=== PATIENT | female | born 1945 | race Caucasian/White ===

== ENCOUNTER 2020-08-31 14:53 | Outpatient (REF) | payer MEDICARE, SELFPAY ==
--- NOTE | 2020-08-31 15:00 | MR_ITS ---
EXAMINATION: MR BRAIN WITHOUT AND WITH CONTRAST CLINICAL INFORMATION: Asymmetric hearing loss. Vertigo. Left acoustic neuroma. COMPARISON: None available. TECHNIQUE: Multiplanar, multisequence imaging of the brain was performed before and after the intravenous administration of 5.5 mL of Gadavist. FINDINGS: The inner ear structures including the cochlea, vestibules, and semicircular canals exhibit preserved CSF signal intensity with no pathologic enhancement. The vestibular aqueducts are not enlarged. Cranial nerves VII and VIII complexes are normal in morphology. No enhancing cerebellopontine angle/retrocochlear lesion. There is no intracranial mass or abnormal intracranial enhancement. There is no acute infarction. There is no intracranial hemorrhage or extra axial collection. There is mild degree of diffuse brain parenchymal volume loss with commensurate prominence of the ventricles and sulci. Minimal periventricular and deep white matter T2 hyperintensity is seen, nonspecific. The flow voids of the major intracranial arteries appear intact. There is mild paranasal sinus mucosal thickening without fluid levels. The mastoids are clear. IMPRESSION: - No vestibular schwannoma or retrocochlear lesion. - No mass lesion, acute infarction, or abnormal intracranial enhancement.
== END 2020-08-31 14:54 | disposition home or self-care (01) ==
LOC: HO.MRI 14:53
PROVIDERS: Visit Provider Otolaryngology
DX: H91.93 Unspecified hearing loss, bilateral (principal); R42 Dizziness and giddiness
CPT/HCPCS: 70553

== ENCOUNTER 2020-09-08 12:20 | Outpatient (REF) | payer MEDICARE, SELFPAY ==
[2020-09-08 13:07] LABS: MANUAL DIFF FLAG NO
[2020-09-08 13:13] LABS: Basophils Absolute Auto 0.1 X10*3/uL (0.0-0.2); Basophils Percent Auto 1.4 % (0-2); Eosinophils Absolute Auto 0.3 X10*3/uL (0.0-0.4); Eosinophils Percent Auto 4.3 % (0-4); Hematocrit 34.4 % (37-47); Hemoglobin 11.2 g/dl (12.0-16.0); Imm Gran Abs Auto 0.02 X10*3/uL (0.00-0.03); Imm Gran Pct Auto 0.3 % (0.0-0.4); Lymphocytes Absolute Auto 1.8 X10*3/uL (1.2-4.9); Lymphocytes Percent Auto 26.7 % (20-40); Mean Corpuscular HGB Conc 32.6 g/dl (31.0-35.0); Mean Corpuscular Hemoglobin 29.9 pg (27.0-33.0); Mean Platelet Volume 11.7 fL (9.4-12.3); Monocytes Absolute Auto 0.8 X10*3/uL (0.1-1.2); Monocytes Percent Auto 11.5 % (2-11); Neutrophils Absolute Auto 3.7 X10*3/uL (2.0-8.3); Neutrophils Percent Auto 55.8 % (45-73); Platelet Count 259 X10*3/uL (160-400); Red Blood Count 3.74 X10*6/uL (4.20-5.50); Red Cell Distribution Width 12.7 % (11.0-16.0); White Blood Count 6.6 X10*3/uL (4.8-10.8)
[2020-09-08 13:50] LABS: Alanine Aminotransferase 20 U/L (0-31); Albumin Level 4.1 g/dL (3.5-5.0); Alkaline Phosphatase 64 U/L (39-117); Anion Gap 11 (12-20); Aspartate Amino Transferase 20 U/L (5-31); Bilirubin Total 0.2 mg/dL (0.0-1.0); Blood Urea Nitrogen 16 mg/dL (9-16); Calcium 9.4 mg/dL (8.4-10.2); Carbon Dioxide 28 mmol/L (22-29); Chloride 98 mmol/L (96-108); Cholesterol 181 mg/dL; Estimated Glomerular Filt Rate 57; Glucose Random 107 mg/dL (60-115); Potassium 4.5 mmol/l (3.3-5.1); Sodium 132 mmol/L (135-145); Total Protein 6.9 g/dL (6.5-8.0)
[2020-09-08 14:13] LABS: Vitamin D 25-OH Total 60.4 ng/mL (>30)
== END 2020-09-08 12:21 | disposition home or self-care (01) ==
LOC: HO.LAB 12:20
PROVIDERS: PCP Internal Medicine; Visit Provider Internal Medicine
DX: I10 Essential (primary) hypertension (principal); K21.9 Gastro-esophageal reflux disease without esophagitis; M81.0 Age-related osteoporosis without current pathological fracture
CPT/HCPCS: 36415; 80053; 82306; 82465; 85025

== ENCOUNTER 2021-05-24 10:00 | Outpatient (REF) | payer MEDICARE, SELFPAY ==
[2021-05-24 10:29] LABS: MANUAL DIFF FLAG NO
[2021-05-24 10:38] LABS: Basophils Absolute Auto 0.1 X10*3/uL (0.0-0.2); Basophils Percent Auto 1.5 % (0-2); Eosinophils Absolute Auto 0.2 X10*3/uL (0.0-0.4); Eosinophils Percent Auto 2.7 % (0-4); Hematocrit 36.2 % (37-47); Hemoglobin 11.6 g/dl (12.0-16.0); Imm Gran Abs Auto 0.02 X10*3/uL (0.00-0.03); Imm Gran Pct Auto 0.3 % (0.0-0.4); Lymphocytes Percent Auto 32.6 % (20-40); Mean Corpuscular Hemoglobin 30.1 pg (27.0-33.0); Monocytes Absolute Auto 0.8 X10*3/uL (0.1-1.2); Monocytes Percent Auto 12.5 % (2-11); Neutrophils Percent Auto 50.4 % (45-73); Platelet Count 223 X10*3/uL (160-400); Red Blood Count 3.85 X10*6/uL (4.20-5.50); Red Cell Distribution Width 12.9 % (11.0-16.0)
[2021-05-24 11:07] LABS: Alanine Aminotransferase 16 U/L (0-31); Albumin Level 4.1 g/dL (3.5-5.0); Alkaline Phosphatase 66 U/L (39-117); Anion Gap 11 (12-20); Aspartate Amino Transferase 19 U/L (5-31); Bilirubin Total 0.6 mg/dL (0.0-1.0); Blood Urea Nitrogen 20 mg/dL (9-16); Calcium 9.8 mg/dL (8.4-10.2); Carbon Dioxide 27 mmol/L (22-29); Chloride 104 mmol/L (96-108); Cholesterol 200 mg/dL; Estimated Glomerular Filt Rate 56; Glucose Fasting 103 mg/dL (60-99); HDL Cholesterol 65 mg/dL; LDL Cholesterol Calculated 122 mg/dl; Potassium 5.1 mmol/L (3.3-5.1); Sodium 137 mmol/L (135-145); Total Protein 7.1 g/dL (6.5-8.0); Triglycerides 69 mg/dL
[2021-05-24 11:17] LABS: Estimated Average Glucose 120 mg/dL; Hemoglobin A1c % 5.8 %
[2021-05-24 11:19] LABS: Thyroid Stimulating Hormone 0.81 uIU/mL (0.32-4.0)
[2021-05-24 11:46] LABS: Creatinine Urine 32.37 mg/dL; Microalbumin Urine < 5.0 mg/L
== END 2021-05-24 10:01 | disposition home or self-care (01) ==
LOC: HO.LAB 10:00
PROVIDERS: PCP Internal Medicine; Visit Provider Internal Medicine
DX: R60.0 Localized edema (principal); R73.03 Prediabetes; I12.9 Hypertensive chronic kidney disease with stage 1 through stage 4 chronic kidney disease, or unspecified chronic kidney disease; N18.9 Chronic kidney disease, unspecified; M81.0 Age-related osteoporosis without current pathological fracture
CPT/HCPCS: 36415; 80053; 80061; 82043; 83036; 84439; 84443; 85025

== ENCOUNTER 2021-07-16 15:08 | Outpatient (REF) | payer MEDICARE, SELFPAY ==
--- NOTE | ~2021-07-16 | MM_ITS ---
EXAMINATION: MM SCREENING DIGITAL BREAST TOMOSYNTHESIS, BILATERAL CLINICAL INFORMATION: Screening. Asymptomatic. The lifetime risk of breast cancer based on the Tyrer-Cuzick Model is 2%. COMPARISON: Mammography: 05/23/2020, 03/08/2019, 02/18/2019, 02/17/2018 TECHNIQUE: Digital breast tomosynthesis is performed in both the craniocaudal and mediolateral oblique views along with computer-aided detection (CAD). Synthesized 2D images are generated from the tomosynthesis. FINDINGS: There are scattered areas of fibroglandular density (ACR BI-RADS breast composition Category b). Parenchymal pattern is similar to prior studies. There are stable parenchymal asymmetries and fibronodular changes similar to prior exams. No developing density or interval significant mass or architectural abnormality. There are scattered bilateral round and coarse and vascular calcifications. The axilla and skin contours are unremarkable. No significant changes. MM/MM tomosynthesis screening BI IMPRESSION: No mammographic evidence of malignancy. ASSESSMENT: BI-RADS 2: Benign RECOMMENDATION: Routine annual mammography screening. This patient's information was entered into a reminder system with a target due date for their next mammogram.
== END 2021-07-16 15:09 | disposition home or self-care (01) ==
LOC: HO.MAMMO 15:08
PROVIDERS: Visit Provider Internal Medicine
DX: Z12.31 Encounter for screening mammogram for malignant neoplasm of breast (principal)
CPT/HCPCS: 77063; 77067

== ENCOUNTER 2021-08-31 10:21 | Outpatient (REF) | payer MEDICARE, SELFPAY ==
[2021-08-31 14:13] LABS: Anion Gap 13 (12-20); Blood Urea Nitrogen 22 mg/dL (9-16); Calcium 9.5 mg/dL (8.4-10.2); Carbon Dioxide 26 mmol/L (22-29); Chloride 99 mmol/L (96-108); Estimated Glomerular Filt Rate 52; Glucose Random 121 mg/dL (60-115); Potassium 4.6 mmol/L (3.3-5.1); Sodium 133 mmol/L (135-145)
[2021-08-31 14:39] LABS: Vitamin D 25-OH Total 67.3 ng/mL (>30)
[2021-08-31 14:48] LABS: Estimated Average Glucose 120 mg/dL; Hemoglobin A1c % 5.8 %
== END 2021-08-31 10:22 | disposition home or self-care (01) ==
LOC: HO.10HDL 10:21
PROVIDERS: Visit Provider Internal Medicine
DX: I12.9 Hypertensive chronic kidney disease with stage 1 through stage 4 chronic kidney disease, or unspecified chronic kidney disease (principal); N18.9 Chronic kidney disease, unspecified; M81.0 Age-related osteoporosis without current pathological fracture; R73.03 Prediabetes
CPT/HCPCS: 36415; 80048; 82306; 83036

== ENCOUNTER 2022-05-21 07:09 | Outpatient (REF) | payer MEDICARE, SELFPAY ==
[2022-05-21 07:21] LABS: MANUAL DIFF FLAG NO
[2022-05-21 07:48] LABS: Basophils Absolute Auto 0.1 X10*3/uL (0.0-0.2); Basophils Percent Auto 1.9 % (0-2); Eosinophils Absolute Auto 0.4 X10*3/uL (0.0-0.4); Hematocrit 33.9 % (37.0-47.0); Hemoglobin 10.9 g/dl (12.0-16.0); Imm Gran Abs Auto 0.02 X10*3/uL (0.00-0.03); Imm Gran Pct Auto 0.3 % (0.0-0.4); Lymphocytes Absolute Auto 2.2 X10*3/uL (1.2-4.9); Lymphocytes Percent Auto 34.7 % (20-40); Mean Corpuscular HGB Conc 32.2 g/dl (31.0-35.0); Mean Corpuscular Hemoglobin 30.1 pg (27.0-33.0); Mean Corpuscular Volume 93.6 fL (80.0-98.0); Mean Platelet Volume 11.9 fL (9.4-12.3); Monocytes Absolute Auto 0.9 X10*3/uL (0.1-1.2); Monocytes Percent Auto 13.6 % (2-11); Neutrophils Absolute Auto 2.7 x10*3/uL (2.0-8.3); Neutrophils Percent Auto 42.5 % (45-73); Platelet Count 247 X10*3/uL (160-400); Red Blood Count 3.62 X10*6/uL (4.20-5.50); White Blood Count 6.3 X10*3/uL (4.8-10.8)
[2022-05-21 08:21] LABS: Alanine Aminotransferase 22 U/L (0-31); Alkaline Phosphatase 70 U/L (39-117); Anion Gap 11 (12-20); Aspartate Amino Transferase 17 U/L (5-31); Bilirubin Total 0.5 mg/dL (0.0-1.0); Blood Urea Nitrogen 24 mg/dL (9-16); Calcium 9.4 mg/dL (8.4-10.2); Carbon Dioxide 27 mmol/L (22-29); Chloride 105 mmol/L (96-108); Cholesterol 211 mg/dL; Estimated Glomerular Filt Rate 49; Glucose Fasting 104 mg/dL (60-99); HDL Cholesterol 65 mg/dL; LDL Cholesterol Calculated 138 mg/dl; Potassium 4.7 mmol/L (3.3-5.1); Sodium 138 mmol/L (135-145); Total Protein 7.1 g/dL (6.5-8.0); Triglycerides 43 mg/dL
== END 2022-05-21 07:10 | disposition home or self-care (01) ==
LOC: HO.LAB 07:09
PROVIDERS: PCP Internal Medicine; Visit Provider Internal Medicine
DX: I12.9 Hypertensive chronic kidney disease with stage 1 through stage 4 chronic kidney disease, or unspecified chronic kidney disease (principal); N18.9 Chronic kidney disease, unspecified; K21.9 Gastro-esophageal reflux disease without esophagitis
CPT/HCPCS: 36415; 80053; 80061; 85025

== ENCOUNTER 2022-07-19 10:17 | Outpatient (REF) | payer MEDICARE, SELFPAY ==
--- NOTE | ~2022-07-19 | MM_ITS ---
EXAMINATION: BONE DENSITOMETRY CLINICAL INDICATION: Menopause. COMPARISON: Previous BD dated 06/08/2019 and baseline BD dated 12/19/2006. TECHNIQUE: Using a [employer] DXA System (software version: 13.1) manufactured by [employer], dual-energy x-ray absorptiometry was performed of the lumbar spine and left hip. The images are of good technical quality. Summary results are attached. FINDINGS: AP SPINE L1-L4: There is dextrocurvature lumbar spine and associated degenerative changes which may cause overestimation of the lumbar bone mineral density. Current: BMD 0.806 g/cm2, Z-score -1.0, T-score -3.1, osteoporosis, 11.6% decrease from previous, 7.5% decrease from baseline (<5% change is not significant). Prior: BMD 0.912 g/cm2. Baseline: BMD 0.871 g/cm2. LEFT FEMUR, NECK: Current: BMD 0.752 g/cm2, Z-score 0.2, T-score -2.1, osteopenia. Prior: BMD 0.719 g/cm2. Baseline: BMD 0.786 g/cm2. LEFT FEMUR, TOTAL: Current: BMD 0.795 g/cm2, Z-score 0.5, T-score -1.7, osteopenia, 1.6% decrease from previous, 6.9% decrease from baseline (<5% change is not significant). Prior: BMD 0.808 g/cm2. Baseline: BMD 0.854 g/cm2. IDENTIFIED RISK FACTORS: Menopause, height loss, osteoporosis. HISTORY OF FRACTURE: None listed. MEDICATIONS: Calcium, vitamin D. MM/XR DEXA axial skeleton IMPRESSION: 1. DIAGNOSIS: Osteoporosis based on the lowest T-score value of -3.1 in the lumbar spine applying World Health Organization criteria. 2. 10-YEAR FRACTURE RISK PREDICTION, FRAX: According to the guidelines, FRAX calculation should only be performed on patients in the osteopenia bone density category. Therefore, FRAX was not performed on this patient. 3. Treatment Recommendations: NOF guidelines recommend consideration for treatment in postmenopausal women and men age 50 and older presenting with the following: -A hip or vertebral (clinical or morphometric) fracture. -T-score less than or equal to -2.5 at the femoral neck or spine after appropriate evaluation to exclude secondary causes. -Low bone mass at the hip or spine and a 10-year fracture probability by FRAX of greater than or equal to 3% for hip fracture or greater than or equal to 20% for major osteoporotic fracture based on the [place] adapted WHO algorithm. 4. Other Recommendations: All treatment decisions require clinical judgment and consideration of individual patient factors, including patient preferences, comorbidities, previous drug use, risk factors not captured in the FRAX model (e.g. frailty, falls, vitamin D deficiency, increased bone turnover, interval significant decline in bone density) and possible under or overestimation of fracture risk by FRAX. Additional medical evaluation for secondary cause of low bone mineral density may be appropriate. FUTURE SCAN RECOMMENDATION: People with diagnosed cases of osteoporosis or at high risk for fracture should have regular bone mineral density tests. For patients eligible for Medicare, routine testing is allowed once every 2 years. The testing frequency can be increased to one year for patients who have rapidly progressing disease, those who are receiving or discontinuing medical therapy to restore bone mass, or have additional risk factors. .
--- NOTE | ~2022-07-19 | MM_ITS ---
EXAMINATION: MM SCREENING DIGITAL BREAST TOMOSYNTHESIS, BILATERAL CLINICAL INFORMATION: Screening. Asymptomatic. The lifetime risk of breast cancer based on the Tyrer-Cuzick Model is 1.7%. COMPARISON: Mammography: July 16, 2021 and studies dating back to December 31, 2011 TECHNIQUE: Digital breast tomosynthesis is performed in both the craniocaudal and mediolateral oblique views along with computer-aided detection (CAD). Synthesized 2D images are generated from the tomosynthesis. FINDINGS: There are scattered areas of fibroglandular density (ACR BI-RADS breast composition Category b). There are no significant masses, abnormal calcifications, or other abnormalities. MM/MM tomosynthesis screening BI IMPRESSION: No mammographic evidence of malignancy. ASSESSMENT: BI-RADS 1: Negative RECOMMENDATION: Routine annual mammography screening. This patient's information was entered into a reminder system with a target due date for their next mammogram.
== END 2022-07-19 10:18 | disposition home or self-care (01) ==
LOC: HO.MAMMO 10:17
PROVIDERS: PCP Internal Medicine; Visit Provider Internal Medicine
DX: Z12.31 Encounter for screening mammogram for malignant neoplasm of breast (principal); Z13.820 Encounter for screening for osteoporosis; Z78.0 Asymptomatic menopausal state
CPT/HCPCS: 77063; 77067; 77080

== ENCOUNTER 2022-11-07 07:39 | Outpatient (REF) | payer MEDICARE, SELFPAY ==
[2022-11-07 07:50] LABS: MANUAL DIFF FLAG NO
[2022-11-07 08:15] LABS: Basophils Absolute Auto 0.1 X10*3/uL (0.0-0.2); Basophils Percent Auto 1.2 % (0-2); Eosinophils Absolute Auto 0.7 X10*3/uL (0.0-0.4); Eosinophils Percent Auto 8.7 % (0-4); Hematocrit 34.6 % (37.0-47.0); Hemoglobin 11.1 g/dl (12.0-16.0); Imm Gran Abs Auto 0.03 X10*3/uL (0.00-0.03); Imm Gran Pct Auto 0.4 % (0.0-0.4); Lymphocytes Absolute Auto 1.8 X10*3/uL (1.2-4.9); Lymphocytes Percent Auto 22.6 % (20-40); Mean Corpuscular HGB Conc 32.1 g/dl (31.0-35.0); Mean Corpuscular Hemoglobin 30.1 pg (27.0-33.0); Mean Corpuscular Volume 93.8 fL (80.0-98.0); Mean Platelet Volume 11.7 fL (9.4-12.3); Monocytes Percent Auto 13.2 % (2-11); Neutrophils Absolute Auto 4.2 x10*3/uL (2.0-8.3); Neutrophils Percent Auto 53.9 % (45-73); Platelet Count 279 X10*3/uL (160-400); Red Blood Count 3.69 X10*6/uL (4.20-5.50); Red Cell Distribution Width 12.5 % (11.0-16.0); White Blood Count 7.8 X10*3/uL (4.8-10.8)
[2022-11-07 08:43] LABS: Alanine Aminotransferase 20 U/L (0-31); Alkaline Phosphatase 67 U/L (39-117); Anion Gap 12 (12-20); Aspartate Amino Transferase 16 U/L (5-31); Bilirubin Total 0.4 mg/dL (0.0-1.0); Blood Urea Nitrogen 22 mg/dL (9-16); Calcium 9.7 mg/dL (8.4-10.2); Carbon Dioxide 28 mmol/L (22-29); Chloride 102 mmol/L (96-108); Cholesterol 181 mg/dL; Estimated Glomerular Filt Rate 54; Glucose Fasting 100 mg/dL (60-99); HDL Cholesterol 54 mg/dL; LDL Cholesterol Calculated 112 mg/dl; Potassium 4.9 mmol/L (3.3-5.1); Sodium 137 mmol/L (135-145); Total Protein 6.9 g/dL (6.5-8.0); Triglycerides 77 mg/dL
== END 2022-11-07 07:40 | disposition home or self-care (01) ==
LOC: HO.LAB 07:39
PROVIDERS: PCP Internal Medicine; Visit Provider Internal Medicine
DX: I10 Essential (primary) hypertension (principal); E78.00 Pure hypercholesterolemia, unspecified; D64.9 Anemia, unspecified
CPT/HCPCS: 36415; 80053; 80061; 85025

== ENCOUNTER 2023-07-02 10:55 | Outpatient (REF) | payer MEDICARE, SELFPAY ==
[2023-07-02 11:08] LABS: MANUAL DIFF FLAG NO
[2023-07-02 11:50] LABS: Basophils Absolute Auto 0.1 X10*3/uL (0.0-0.2); Basophils Percent Auto 1.2 % (0-2); Eosinophils Absolute Auto 0.3 X10*3/uL (0.0-0.4); Eosinophils Percent Auto 5.1 % (0-4); Hematocrit 33.6 % (37.0-47.0); Hemoglobin 11.1 g/dl (12.0-16.0); Imm Gran Abs Auto 0.02 X10*3/uL (0.00-0.03); Imm Gran Pct Auto 0.3 % (0.0-0.4); Lymphocytes Absolute Auto 1.9 X10*3/uL (1.2-4.9); Mean Corpuscular Hemoglobin 30.2 pg (27.0-33.0); Mean Corpuscular Volume 91.3 fL (80.0-98.0); Mean Platelet Volume 12.1 fL (9.4-12.3); Monocytes Absolute Auto 0.8 X10*3/uL (0.1-1.2); Monocytes Percent Auto 11.3 % (2-11); Neutrophils Absolute Auto 3.6 x10*3/uL (2.0-8.3); Neutrophils Percent Auto 54.1 % (45-73); Platelet Count 238 X10*3/uL (160-400); Red Blood Count 3.68 X10*6/uL (4.20-5.50); Red Cell Distribution Width 13.1 % (11.0-16.0); White Blood Count 6.7 X10*3/uL (4.8-10.8)
[2023-07-02 12:23] LABS: Anion Gap 14 (12-20); Blood Urea Nitrogen 19 mg/dL (9-16); Calcium 9.2 mg/dL (8.4-10.2); Carbon Dioxide 23 mmol/L (22-29); Chloride 103 mmol/L (96-108); Estimated Glomerular Filt Rate 55; Glucose Random 134 mg/dL (60-115); Iron 140 mcg/dL (30-160); Percent Iron Saturation 41 % (15-50); Sodium 135 mmol/L (135-145); Total Iron Binding Capacity 338 mcg/dL (228-428); Unsaturated Iron Binding 198 ug/dL
== END 2023-07-02 10:56 | disposition home or self-care (01) ==
LOC: HO.LAB 10:55
PROVIDERS: PCP Internal Medicine; Visit Provider Internal Medicine
DX: K21.9 Gastro-esophageal reflux disease without esophagitis (principal); D64.9 Anemia, unspecified; I12.9 Hypertensive chronic kidney disease with stage 1 through stage 4 chronic kidney disease, or unspecified chronic kidney disease; N18.9 Chronic kidney disease, unspecified
CPT/HCPCS: 36415; 80048; 83540; 85025

== ENCOUNTER 2023-07-24 10:25 | Outpatient (REF) | payer MEDICARE, SELFPAY | END 2023-07-24 10:26 | disposition home or self-care (01) | LOC: HO.MAMMO 10:25 | PROVIDERS: PCP Internal Medicine; Visit Provider Internal Medicine | DX: Z12.31 Encounter for screening mammogram for malignant neoplasm of breast (principal) | CPT/HCPCS: 77063; 77067 ==

== ENCOUNTER → 2023-07-24 11:00 | Outpatient (BNV) | payer MEDICARE, SELFPAY | PROVIDERS: PCP Internal Medicine; Visit Provider Radiology Diagnostic Radiology | DX: Z12.31 Encounter for screening mammogram for malignant neoplasm of breast (principal) | CPT/HCPCS: 77063; 77067 ==

== ENCOUNTER 2023-10-15 08:12 | Outpatient (REF) | payer MEDICARE, SELFPAY ==
[2023-10-15 08:45] LABS: MANUAL DIFF FLAG NO
[2023-10-15 10:17] LABS: Basophils Absolute Auto 0.1 X10*3/uL (0.0-0.2); Basophils Percent Auto 1.3 % (0-2); Eosinophils Absolute Auto 0.4 X10*3/uL (0.0-0.4); Eosinophils Percent Auto 5.6 % (0-4); Hematocrit 35.1 % (37.0-47.0); Hemoglobin 11.2 g/dl (12.0-16.0); Imm Gran Abs Auto 0.01 X10*3/uL (0.00-0.03); Imm Gran Pct Auto 0.2 % (0.0-0.4); Lymphocytes Absolute Auto 1.7 X10*3/uL (1.2-4.9); Lymphocytes Percent Auto 27.2 % (20-40); Mean Corpuscular HGB Conc 31.9 g/dl (31.0-35.0); Mean Corpuscular Hemoglobin 29.9 pg (27.0-33.0); Mean Corpuscular Volume 93.6 fL (80.0-98.0); Monocytes Absolute Auto 0.7 X10*3/uL (0.1-1.2); Monocytes Percent Auto 11.6 % (2-11); Neutrophils Absolute Auto 3.5 x10*3/uL (2.0-8.3); Neutrophils Percent Auto 54.1 % (45-73); Platelet Count 230 X10*3/uL (160-400); Red Blood Count 3.75 X10*6/uL (4.20-5.50); Red Cell Distribution Width 13.2 % (11.0-16.0); White Blood Count 6.4 X10*3/uL (4.8-10.8)
[2023-10-15 10:32] LABS: Estimated Average Glucose 123 mg/dL; Hemoglobin A1c % 5.9 % (<6.0)
[2023-10-15 10:56] LABS: Alanine Aminotransferase 18 U/L (0-31); Albumin Level 3.9 g/dL (3.5-5.0); Alkaline Phosphatase 71 U/L (39-117); Anion Gap 11 (12-20); Aspartate Amino Transferase 21 U/L (5-31); Bilirubin Total 0.4 mg/dL (0.0-1.0); Blood Urea Nitrogen 23 mg/dL (9-16); Calcium 9.4 mg/dL (8.4-10.2); Carbon Dioxide 26 mmol/L (22-29); Chloride 104 mmol/L (96-108); Cholesterol 177 mg/dL (<200); Estimated Glomerular Filt Rate 55; Glucose Fasting 94 mg/dL (60-99); HDL Cholesterol 57 mg/dL (>40); LDL Cholesterol Calculated 109 mg/dL (<100); Potassium 4.8 mmol/L (3.3-5.1); Sodium 136 mmol/L (135-145); Total Protein 7.2 g/dL (6.5-8.0); Triglycerides 58 mg/dL (<150)
[2023-10-15 11:16] LABS: Vitamin D 25-OH Total 72.6 ng/mL (>30)
== END 2023-10-15 08:13 | disposition home or self-care (01) ==
LOC: HO.LAB 08:12
PROVIDERS: PCP Internal Medicine; Visit Provider Internal Medicine
DX: I12.9 Hypertensive chronic kidney disease with stage 1 through stage 4 chronic kidney disease, or unspecified chronic kidney disease (principal); N18.9 Chronic kidney disease, unspecified; R73.03 Prediabetes; E55.9 Vitamin D deficiency, unspecified
CPT/HCPCS: 36415; 80053; 80061; 82306; 83036; 85025

== ENCOUNTER 2024-02-02 11:50 | Outpatient (AMB) | payer MEDICARE, SELFPAY ==
--- NOTE | 2024-02-02 12:01 | MHC.OFFVIS ---
Intake Vital Signs 02/02/24 12:13 Height 4 ft 11 in Weight 120 lb BMI 24.2 BP 128/76 Intake Visit Reasons: [employer] annual exam/Referral/DO NOT RS Intake Note: c/o of vaginal cyst ,now resolve Hospice Superintendent Required: Yes Hospice Superintendent Language: [place] Hospice Superintendent Name: Roxann Hernandez Information Interpreted: non-clinical & clinical Culled Fruit Packer: Culled Fruit Packer Present (Rocio VERDUGOA) Accompanied by: Daughter Allergies No Known Allergies Allergy (Mild, Unverified 02/02/24 12:06) NOT APPLICABLE Post menopausal: Yes HPI HPI Comments History of Present Illness Details Presenting for annual exam. No complaints. Last Pap/HPV was many years ago no history of abnormal Pap smears last 25 years Last Mammogram was BI-RADS 1 in 07/23 Next screening Colonoscopy due in 08/24 Last DEXA scan was in 07/22 [facility] Medical History GERD (gastroesophageal reflux disease) HTN (hypertension) Family History Sister HTN (hypertension) Social History Household Members: None Housing: House Alcohol intake: never Patient Tobacco Use Status: Never used Tobacco Current occupational status: retired Sexually active: No Sexual orientation: Straight/Heterosexual Gender identity: Female Female Reproductive History Menstrual Menopause type: natural Total pregnancies: 2 Full term: 2 Number of Living Children: 2 Review of Systems Const All systems reviewed & are unremarkable except as noted in HPI and below Card Reports as per HPI Resp Reports as per HPI GI Reports as per HPI and Reports no additional complaints Reports as per HPI Physical Exam Vital Signs: Last Vital Signs BP 128/76 02/02/24 12:13 BMI result Body Mass Index 24.2 Const General: cooperative, healthy appearing and comfortable Chest Chest palpation & inspection: normal inspection of the chest and normal palpation of entire chest wall Breast/axilla inspection: normal inspection of the breasts and normal inspection of the axillae Breast/axilla palpation: normal palpation of the breasts, normal palpation of the axillae and no axillary lymphadenopathy Resp Effort & Inspection: normal respiratory effort Auscultation: clear to auscultation bilaterally Percussion: percussion normal Cardio Palpation: normal PMI Rate: regular rate Rhythm: regular rhythm Heart sounds: no murmurs and no rubs Peripheral pulses: Peripheral pulses 2+ throughout GI Inspection: Yes normal to inspection Palpation (GI): Soft to palpation, nontender, no guarding, not rigid and No hepatosplenomegaly present Percussion: Yes normal to percussion Auscultation: normal bowel sounds Rectal Exam - Female: deferred General: Yes bladder normal to palpation External Female Exam: No lesion Speculum Exam - Vagina: normal appearance of the vagina, normal palpation, normal vaginal discharge and not erythematous Speculum Exam - Cervix: normal appearance of the cervix and normal palpation Bimanual exam- vagina & uterus: normal bimanual exam, normal palpation, uterine size normal, bladder normal to palpation, consistency normal and normal palpation Bimanual Exam- Adnexa, other: normal adnexae, no masses and no tenderness Assessment & Plan Assessment & Plan (1) Well woman exam: Code(s): Z01.419 - Encounter for gynecological examination (general) (routine) without abnormal findings Plan: Co testing not indicated since the patient 's age is above 65 with no history of abnormal Pap smears last 25 years. Counseled the patient about the recommended dietary allowance of 1200 mg of Calcium & 800 IU of vitamin D. Instructions given to patient to schedule next screening Mammogram in 07/24. The patient is in the process schedule her next screening colonoscopy in 08/24. Will order DEXA scan in 07/24 . The patient was instructed to perform monthly self-breast exams and to schedule a 2 week DEXA scan follow-up appointment and an annual exam in a year; All questions answered and the patient verbalized understanding. Orders: Orders XR DEXA axial skeleton 08/11/24 Z78.0 - Asymptomatic menopausal state Coding Level of Care Code New Pt Prev Care >65yr (45833) Diagnoses Well woman exam Z01.419
[2024-02-02 12:13] VITALS: BP 128/76; BMI 24.2
== END 2024-02-02 12:42 | disposition home or self-care (01) ==
LOC: HO.HWS 11:52
PROVIDERS: PCP Internal Medicine; Visit Provider Obstetrics & Gynecology
DX: Z01.419 Encounter for gynecological examination (general) (routine) without abnormal findings (principal)
CPT/HCPCS: 99387

== ENCOUNTER → 2024-02-02 11:50 | Outpatient (BNVA) | payer MEDICARE, SELFPAY | PROVIDERS: PCP Internal Medicine; Visit Provider Obstetrics & Gynecology ==

== ENCOUNTER 2024-07-01 12:19 | Outpatient (REF) | payer MEDICARE, SELFPAY ==
--- NOTE | ~2024-07-01 | US_ITS ---
EXAMINATION: US RETROPERITONEAL COMPLETE (RENAL) CLINICAL INFORMATION: Chronic kidney disease, CRI, HTN. COMPARISON: None available. TECHNIQUE: Real-time imaging of the kidneys and bladder. Limited visualization due to bowel gas. FINDINGS: RIGHT KIDNEY: 9.3 x 4.0 x 4.5 cm (SAG x AP x TRV). No hydronephrosis. No renal calculi. Renal cortical thickness is normal. Limited visualization. A 1.1 cm lower pole cyst with benign features. There is no indication for follow-up imaging. LEFT KIDNEY: 8.9 x 4.2 x 4.1 cm (SAG x AP x TRV No hydronephrosis. No renal calculi. Renal cortical thickness is normal. Limited visualization. BLADDER: Well-distended and unremarkable. Bilateral ureteral jets are demonstrated. Prevoid bladder volume is 227.3 mL. Postvoid bladder volume is 42.8 mL. US/US retroperitoneal comp IMPRESSION: 1. No hydronephrosis. No renal calculi. 2. Postvoid bladder volume is 42.8 mL.
== END 2024-07-01 12:20 | disposition home or self-care (01) ==
LOC: HO.US 12:19
PROVIDERS: PCP Internal Medicine; Visit Provider Internal Medicine
DX: I12.9 Hypertensive chronic kidney disease with stage 1 through stage 4 chronic kidney disease, or unspecified chronic kidney disease (principal); N18.9 Chronic kidney disease, unspecified
CPT/HCPCS: 76770

== ENCOUNTER 2024-07-01 18:23 | Emergency (ER) | payer MEDICARE, SELFPAY ==
--- NOTE | ~2024-07-01 | CT_ITS ---
EXAMINATION: CT head/brain wo IV con CLINICAL INFORMATION: dizziness x2 wks COMPARISON: None. TECHNIQUE: Contiguous axial imaging was performed from the skull base to vertex without intravenous contrast. Sagittal and coronal reformatted images were obtained. This CT examination was performed using dose optimization techniques as appropriate, variously including the following: * Automated exposure control * Adjustment of mA and/or kV according to patient size (this includes techniques or standardized protocols for targeted exams where dose is matched to indication/reason for exam; i.e. extremities or head) Use of iterative reconstruction technique DLP: 571.74 mGy-cm FINDINGS: The ventricles and sulci are normal in size and configuration without significant volume loss or hydrocephalus No territorial loss of boucher-white differentiation. No acute intracranial hemorrhage or extra-axial fluid collection. No mass lesion, significant mass effect, or herniation pattern. Calcific plaque along the carotid siphons. The orbits are grossly normal. Patchy moderate polypoid mucosal disease of the paranasal sinuses. Osseous structures are intact. CT/CT head/brain wo IV con IMPRESSION: No acute intracranial abnormality. Specifically, no CT evidence of acute intracranial hemorrhage, significant mass effect, hydrocephalus, or large territorial infarction.
--- NOTE | ~2024-07-01 | XR_ITS ---
EXAMINATION: XR CHEST CLINICAL INFORMATION: Dizziness. COMPARISON: None available. TECHNIQUE: 2 views of the chest were obtained. FINDINGS: The heart is normal in size. There is a small opacity within the lateral left lower lung. The right lung is clear. No pleural effusion. No pneumothorax. No acute osseous abnormality. There are degenerative changes of the glenohumeral joints and degenerative changes of the spine. XR/XR chest 2V IMPRESSION: Lateral left lower lobe opacity. Although this may represent atelectasis, an infectious/inflammatory process is not excluded.
[2024-07-01 18:26] VITALS: BP 198/92; PULSE 98; RESP 18; TEMP 36.6; O2SAT 98; BMI 27.4
--- NOTE | 2024-07-01 18:26 | ED.DIZZY ---
HPI - Dizziness General Chief Complaint: General Medical Stated Complaint: Dizziness, high bp: 207/91 20 mins ago Time Seen by Provider: 07/01/24 19:14 Source: patient and family Mode of arrival: ambulatory Limitations: no limitations History of Present Illness ED Provider: Dr. Valerie Villarreal HPI Narrative: Patient comes to the emergency room complaining of 2 weeks of dizziness, explained by the daughter as unsteadiness on her feet, hanging on to the verdin for walking. Worsened weakness, headaches. According to the patient's daughter, today, the patient had an appointment for outpatient renal ultrasounds. When the patient's daughter dropped her mother home, the patient seemed very slow to respond although she was awake, confused. They brought her to the emergency room. According to the daughter that the patient has not had any falls. Related Data Home Medications ?Medication ?Instructions ?Recorded ?Confirmed alprazolam 0.25 mg tablet 0.25 mg PO DAILY 02/02/24 bupropion HCl 100 mg tablet,12 hr 100 mg PO QAM 02/02/24 sustained-release lansoprazole 30 mg capsule,delayed 30 mg PO DAILY 02/02/24 release lisinopril 10 mg tablet 10 mg PO DAILY 02/02/24 clobetasol 0.05 % topical ointment 1 appl topical NEEDED PRN Rash 07/01/24 fexofenadine 60 mg tablet 60 mg PO BID 07/01/24 glucosamine sulfate 750 mg tablet 1,500 mg PO DAILY 07/01/24 [id number] 200 1 tab PO DAILY 07/01/24 mg-biotin 450 mcg-vit D3 400 unit-FA tablet multivitamin 1 tab PO DAILY 07/01/24 Allergies Allergy/AdvReac Type Severity Reaction Status Date / Time No Known Allergies Allergy Mild NOT Verified 07/01/24 18:27 APPLICABLE Review of Systems Review of Systems: Constitutional : No Weight loss, No Fever, No Chills, No Night Sweats, lying of fatigue, weakness ENT/Mouth : No Hearing loss, No Ear Pain, No Nasal Congestion, No Sinus Pain, No Hoarseness, No sore throat, No Rhinorrhea, No Swallowing Difficulty Eyes: No Eye Pain, No Swelling, No Redness, No Foreign Body, No Discharge, No Vision Changes Cardiovascular : No Chest Pain, No SOB, No Dyspnea on Exertion, No Orthopnea, No Edema, No Palpitations Respiratory : No Cough, No Sputum, No Wheezing, No Smoke Exposure, No Dyspnea Gastrointestinal : No Nausea, No Vomiting, No Diarrhea, No Constipation, No abdominal Pain, No Hematochezia, No Melena Genitourinary : no irregular bleeding, No Dysuria, No Urinary Frequency, No Hematuria, No Urinary Incontinence, No Urgency, No Flank Pain, No Urinary Flow Changes, No Hesitancy Musculoskeletal : No joint pain, No Myalgias, No Joint Swelling Skin : No Skin Lesions, No rash Neuro : No Weakness, No Numbness, No Paresthesias, No Loss of Consciousness, complaining of dizziness, headaches Psych : No Anxiety/Panic, No Depression, No SI/HI/AH/VH, No Social Issues, Heme/Lymph: No Bruising, No Bleeding,No Lymphadenopathy Endocrine : No Polyuria, No Polydipsia, No Temperature Intolerance [facility] Past Medical History Medical History GERD (gastroesophageal reflux disease) HTN (hypertension) Family History Family History Sister HTN (hypertension) Social History Social History Household Members: None Housing: House Alcohol intake: never Patient Tobacco Use Status: Never used Tobacco Smoked in Last 30 Days: No Use of substances other than those prescribed or required for medical reasons: No Advance Directives: No Advance Directives Information Provided: No Do you have a plan to hurt others: No Plan Current occupational status: retired Sexual orientation: Straight/Heterosexual Gender identity: Female Physical Exam Vital Signs: Vital Signs: Last Vital Signs Temp 97.7 F 07/01/24 22:00 Pulse 83 07/01/24 22:00 Resp 17 07/01/24 22:00 BP 150/79 H 07/01/24 22:00 Pulse Ox 97 07/01/24 22:00 O2 Del Method Room Air 07/01/24 22:00 BMI result Body Mass Index 27.4 Const: Other: Appearance: Alert. No acute distress, seems a bit confused Eyes: Pupils equal, round and reactive to light. ENT: Pharynx normal. Neck: Normal inspection. Neck supple. No lymph nodes noted. No crepitus CVS: Normal heart rate and rhythm. Pulses normal. Normal S1 and S2 Respiratory: No respiratory distress. Breath sounds normal. No Wheezing. No rales Abdomen: Soft and nontender. No rigidity. No distention. Skin: Skin warm and dry. Normal skin color. Normal skin turgor. Extremities: No lower extremity edema. No Lacerations. No Rash Neuro: No motor deficit. No sensory deficit. Moving all extremities. No slurred speech. CN 2 through 12 grossly intact Psych: calm, cooperative, normal affect Course Course Course Narrative: This is a Rapid Medical Examination (RME) performed by Rody Vaughan PA-C in triage. Full HPI, ROS, assessment and treatment plan per primary provider in the Main ED. 79 yo female here w/ daughter for eval of intermittent dizziness x2 weeks. Can not characterize the dizziness. daughter reports patient began to complain of PATEL 2-3 hours ago. BP at home noted to be 210/98. took an extra 10mg lisinopril. bp did not improve. denies chest pain, palpitations, sob, vision changes, difficulty ambulating no slurred speech. no pronator drift. no facial droop. AOx3. ambulating w/ steady gait rn discharge aware of patient, will be brought back to ED bed immediately for further evaluation. Plan: labs, EKG, CT, UA, cxr Medications Administered Generic Name Dose Route Start Last Admin Trade Name Freq PRN Reason Stop Dose Admin Sodium Chloride 1,000 mls @ 100 mls/hr 07/01/24 21:00 07/01/24 21:12 Ns IVCONT 100 mls/hr .Q10H EFRAIN Administration Discontinued Medications Generic Name Dose Route Start Last Admin Trade Name Freq PRN Reason Stop Dose Admin Ceftriaxone Sodium 1 gm/ 50 mls @ 100 mls/hr 07/01/24 20:39 07/01/24 21:19 Sodium Chloride IV 07/01/24 21:08 Infused ONCE ONE Infusion Azithromycin 500 mg/ Sodium 250 mls @ 125 mls/hr 07/01/24 20:39 07/01/24 23:40 Chloride IV 07/01/24 22:38 Infused ONCE ONE Infusion Ondansetron HCl 4 mg 07/01/24 20:36 07/01/24 20:55 Ondansetron Hcl 4 Mg/2 Ml Vial IVPUSH 07/01/24 20:37 4 mg ONCE ONE Administration Medical Decision Making Medical Decision Making [facility] Narrative: My interpretation of labs: Hematology at baseline, patient anemic with a hemoglobin of 10.5 which is chronic. Patient's sodium is 111, serum osmolality 234, urine osmolality 267, urine sodium 88 -interpretation of head CT: No intracranial bleed. -I discussed the above-mentioned with Dr. Monroy from Nephrology. At this time, recommendations is to run normal saline at 100 mL/hour. We will recheck labs every 3-4 hours. -I discussed with Dr. Monroy that patient is with a sodium of less than 120 usually go to the ICU. Dr. Monroy states that other than running saline at 100 mL/hour, there will be no significant changes in treatment. No need for the patient to go to an ICU. We can manage the patient here at [facility] on the floor. I discussed the above-mentioned with Dr. ravi, who consulted Dr. Montenegro. We will keep the patient here in the ED -other recommendation per Nephrology, discontinue using lisinopril -chest x-ray radiology report: Atelectasis versus pneumonia, patient empirically being treated with antibiotics. According to the patient's daughter, the patient has not had any URI symptoms -patient vomited x1 here in the ED, given Zofran. Fluids will remain at 100 mL/hour -per patient's daughter, to her knowledge, the patient does not drink excessive amounts of water, only 3-4 medium bottles throughout the day -overall, after a prolonged discussion, patient can not be admitted to the floor with a sodium of 111. We were able to get in touch with [facility] ICU, discussed the patient with the fellow on-call, patient being admitted. We will repeat sodium prior to transport. If sodium is increasing more than 1-2 mL/hour, we will discontinue sodium. -accepting physician Dr. Tinoco Differential Diagnosis Differential Diagnoses: The differential diagnosis associated with the presentation includes (Hyponatremia, UTI, TIA) Admission/Observation Consideration of admission/observation: Escalation of care including admission/observation considered Consult Healthcare Provider Management of the patient was discussed with: Hospitalist and Pyrometer Temperature Regulator Lab Data [facility] Lab Attestation statement: I reviewed the patient's lab results. 07/01/24 18:40 07/01/24 21:45 Labs: Lab Results 07/01/24 07/01/24 07/01/24 Range/Units 18:40 19:40 19:41 WBC 7.3 (4.8-10.8) X10*3/uL RBC 3.43 L (4.20-5.50) X10*6/uL Hgb 10.5 L (12.0-16.0) g/dl Hct 29.1 L (37.0-47.0) % MCV 84.8 (80.0-98.0) fL MCH 30.6 (27.0-33.0) pg MCHC 36.1 H (31.0-35.0) g/dl RDW 12.2 (11.0-16.0) % Plt Count 231 (160-400) X10*3/uL MPV 10.4 (9.4-12.3) fL Immature Gran % (Auto) Cancelled Neut % (Auto) Cancelled Lymph % (Auto) Cancelled [place] % (Auto) Cancelled Eos % (Auto) Cancelled Baso % (Auto) Cancelled Lymph # (Auto) Cancelled [place] # (Auto) Cancelled Eos # (Auto) Cancelled Baso # (Auto) Cancelled Abs Immat Gran (auto) Cancelled Absolute Neuts (auto) Cancelled Absolute Nucleated RBC 0.000 (0.0-0.012) X10*3/uL Nucleated RBC % (auto) 0.0 (0.0-0.2) /100WBC Neutrophils % (Manual) 71 (45-73) % Band Neutrophils % 0 L (3-5) % Lymphocytes % (Manual) 22 (20-40) % Monocytes % (Manual) 6 (2-11) % Basophils % (Manual) 1 (0-2) % Abs Neuts (Manual) 5.2 (2.0-8.3) X10*3/uL Lymphocytes # (Manual) 1.6 (1.2-4.9) X10*3/uL Monocytes # (Manual) 0.4 (0.1-1.2) X10*3/uL Basophils # (Manual) 0.1 (0.0-0.2) X10*3/uL Platelet Estimate NORMAL (NORMAL) Plt Morphology Comment NORMAL RBC Morphology NOTED [place] Cells 1+ (0-2) /OIF Sodium 111 L* (135-145) mmol/L Potassium 4.2 (3.3-5.1) mmol/L Chloride 81 L D (96-108) mmol/L Carbon Dioxide 21 L (22-29) mmol/L Anion Gap 13 (12-20) BUN 11 (9-16) mg/dL Creatinine 0.79 (0.5-1.4) mg/dL Estim Creat Clear Calc 36.8 Estimated GFR > 60 Random Glucose 126 H (60-115) mg/dL Osmolality 234 L (281-305) mosm/kg Calcium 8.4 D (8.4-10.2) mg/dL Magnesium 1.8 (1.6-2.6) mg/dL Total Bilirubin 0.4 (0.0-1.0) mg/dL AST 23 (5-31) U/L ALT 17 (0-31) U/L Alkaline Phosphatase 68 (39-117) U/L Troponin I High Sens 4.8 (<3.5-17.0) ng/L B-Natriuretic Peptide 48 (<100) pg/mL Total Protein 6.9 (6.5-8.0) g/dL Albumin 3.9 (3.5-5.0) g/dL Lipase 33 (8-78) U/L Urine Color Yellow Urine Appearance Clear Urine pH 8.0 (5.0-9.0) Ur Specific [place] <= 1.005 (1.005-1.025) Urine Protein Trace (Neg-Trace) mg/dL Urine Glucose (UA) Negative (Negative) mg/dL Urine Ketones Negative (Negative) mg/dL Urine Blood Negative (Negative) Urine Nitrite Negative (Negative) Ur Leukocyte Esterase Trace H (Negative) Urine RBC 0-2 (0-2) /HPF Urine WBC 0-5 (0-5) /HPF Ur Squamous Epith Cells 0-2 (0-2) /HPF Urine Bacteria None Seen (None Seen) Hyaline Casts 0-2 (0-2) /LPF Urine Osmolality 267 L (373-1093) mosm/kg Ur Random Sodium 88.0 mmol/L Influenza Type A (PCR) NEGATIVE (Negative) Influenza Type B (PCR) NEGATIVE (Negative) RSV RNA Qual (PCR) NEGATIVE (Negative) SARS-CoV-2 RNA (RT-PCR) NEGATIVE (Negative) 07/01/24 Range/Units 21:45 WBC (4.8-10.8) X10*3/uL RBC (4.20-5.50) X10*6/uL Hgb (12.0-16.0) g/dl Hct (37.0-47.0) % MCV (80.0-98.0) fL MCH (27.0-33.0) pg MCHC (31.0-35.0) g/dl RDW (11.0-16.0) % Plt Count (160-400) X10*3/uL MPV (9.4-12.3) fL Immature Gran % (Auto) Neut % (Auto) Lymph % (Auto) [place] % (Auto) Eos % (Auto) Baso % (Auto) Lymph # (Auto) [place] # (Auto) Eos # (Auto) Baso # (Auto) Abs Immat Gran (auto) Absolute Neuts (auto) Absolute Nucleated RBC (0.0-0.012) X10*3/uL Nucleated RBC % (auto) (0.0-0.2) /100WBC Neutrophils % (Manual) (45-73) % Band Neutrophils % (3-5) % Lymphocytes % (Manual) (20-40) % Monocytes % (Manual) (2-11) % Basophils % (Manual) (0-2) % Abs Neuts (Manual) (2.0-8.3) X10*3/uL Lymphocytes # (Manual) (1.2-4.9) X10*3/uL Monocytes # (Manual) (0.1-1.2) X10*3/uL Basophils # (Manual) (0.0-0.2) X10*3/uL Platelet Estimate (NORMAL) Plt Morphology Comment RBC Morphology [place] Cells /OIF Sodium 111 L* (135-145) mmol/L Potassium 3.8 (3.3-5.1) mmol/L Chloride 81 L (96-108) mmol/L Carbon Dioxide 21 L (22-29) mmol/L Anion Gap 13 (12-20) BUN 9 (9-16) mg/dL Creatinine 0.76 (0.5-1.4) mg/dL Estim Creat Clear Calc 38.3 Estimated GFR > 60 Random Glucose 138 H (60-115) mg/dL Osmolality (281-305) mosm/kg Calcium 8.6 (8.4-10.2) mg/dL Magnesium (1.6-2.6) mg/dL Total Bilirubin (0.0-1.0) mg/dL AST (5-31) U/L ALT (0-31) U/L Alkaline Phosphatase (39-117) U/L Troponin I High Sens (<3.5-17.0) ng/L B-Natriuretic Peptide (<100) pg/mL Total Protein (6.5-8.0) g/dL Albumin (3.5-5.0) g/dL Lipase (8-78) U/L Urine Color Urine Appearance Urine pH (5.0-9.0) Ur Specific [place] (1.005-1.025) Urine Protein (Neg-Trace) mg/dL Urine Glucose (UA) (Negative) mg/dL Urine Ketones (Negative) mg/dL Urine Blood (Negative) Urine Nitrite (Negative) Ur Leukocyte Esterase (Negative) Urine RBC (0-2) /HPF Urine WBC (0-5) /HPF Ur Squamous Epith Cells (0-2) /HPF Urine Bacteria (None Seen) Hyaline Casts (0-2) /LPF Urine Osmolality (373-1093) mosm/kg Ur Random Sodium mmol/L Influenza Type A (PCR) (Negative) Influenza Type B (PCR) (Negative) RSV RNA Qual (PCR) (Negative) SARS-CoV-2 RNA (RT-PCR) (Negative) Independent Interpretation I performed an independent interpretation of an: Plain X-Ray and CT Scan Radiology Impression Discussion of test interpretation with radiology: I have reviewed the radiologist's reading. Radiologist Impression: The ventricles and sulci are normal in size and configuration without significant volume loss or hydrocephalus No territorial loss of boucher-white differentiation. No acute intracranial hemorrhage or extra-axial fluid collection. No mass lesion, significant mass effect, or herniation pattern. Calcific plaque along the carotid siphons. The orbits are grossly normal. Patchy moderate polypoid mucosal disease of the paranasal sinuses. Osseous structures are intact. CT/CT head/brain wo IV con IMPRESSION: No acute intracranial abnormality. Specifically, no CT evidence of acute intracranial hemorrhage, significant mass effect, hydrocephalus, or large territorial infarction. The heart is normal in size. There is a small opacity within the lateral left lower lung. The right lung is clear. No pleural effusion. No pneumothorax. No acute osseous abnormality. There are degenerative changes of the glenohumeral joints and degenerative changes of the spine. XR/XR chest 2V IMPRESSION: Lateral left lower lobe opacity. Although this may represent atelectasis, an infectious/inflammatory process is not excluded. Independent Historian Clinical information obtained from an independent historian. History obtained from or confirmed by: Other (Patient's daughter) Critical Care Time Critical Care Time Critical Care Time: Yes Total Critical Care Time: 90 Attestation: I have personally provided critical care time. Time includes review of lab data, radiology results, discussion with consultants, and monitoring for potential decompensation. Intervention performed as documented. Discharge Plan Discharge Clinical Impression: Acute hyponatremia Patient Disposition: Admitted As Inpatient Print Language: Peruvian
--- NOTE | 2024-07-01 18:27 | ECG_ITS ---
Test Reason : dizziness Blood Pressure : / mmHG Vent. Rate : 089 BPM Atrial Rate : 089 BPM P-R Int : 248 ms QRS Dur : 084 ms QT Int : 352 ms P-R-T Axes : 062 032 043 degrees QTc Int : 428 ms Sinus rhythm with 1st degree A-V block Possible Left atrial enlargement Nonspecific ST abnormality Abnormal ECG No previous ECGs available Referred By: Patricia Vaughan Electronically Signed By:Dieter Castañeda
[2024-07-01 18:49] LABS: Hematocrit 29.1 % (37.0-47.0); Hemoglobin 10.5 g/dl (12.0-16.0); Mean Corpuscular HGB Conc 36.1 g/dl (31.0-35.0); Mean Corpuscular Hemoglobin 30.6 pg (27.0-33.0); Mean Corpuscular Volume 84.8 fL (80.0-98.0); Mean Platelet Volume 10.4 fL (9.4-12.3); Platelet Count 231 X10*3/uL (160-400); Red Blood Count 3.43 X10*6/uL (4.20-5.50); Red Cell Distribution Width 12.2 % (11.0-16.0)
[2024-07-01 19:03] VITALS: BP 179/87; PULSE 85; RESP 13; TEMP 36.7; O2SAT 96
[2024-07-01 19:08] LABS: Troponin-I High Sensitivity 4.8 ng/L (<3.5-17.0); WBC ABN SCTR FOR CBC 1
[2024-07-01 19:12] LABS: Alanine Aminotransferase 17 U/L (0-31); Albumin Level 3.9 g/dL (3.5-5.0); Alkaline Phosphatase 68 U/L (39-117); Anion Gap 13 (12-20); Aspartate Amino Transferase 23 U/L (5-31); Bilirubin Total 0.4 mg/dL (0.0-1.0); Blood Urea Nitrogen 11 mg/dL (9-16); Calcium 8.4 mg/dL (8.4-10.2); Carbon Dioxide 21 mmol/L (22-29); Chloride 81 mmol/L (96-108); Creatinine Clr Calc Pharmacy 36.8; Estimated Glomerular Filt Rate > 60; Glucose Random 126 mg/dL (60-115); Lipase 33 U/L (8-78); Magnesium 1.8 mg/dL (1.6-2.6); Potassium 4.2 mmol/L (3.3-5.1); Sodium 111 mmol/L (135-145); Total Protein 6.9 g/dL (6.5-8.0)
[2024-07-01 19:15] LABS: Band Neutrophils Percent 0 % (3-5); Basophils Percent Manual 1 % (0-2); Lymphocytes Percent Manual 22 % (20-40); Monocytes Percent Manual 6 % (2-11); Neutrophils Percent Manual 71 % (45-73)
[2024-07-01 19:17] LABS: Burr Cells 1+ (0-2) /OIF; RBC Morphology NOTED
[2024-07-01 19:18] LABS: Platelet Estimate NORMAL (NORMAL); Platelet Morphology Comment NORMAL
[2024-07-01 19:19] LABS: Basophils Abs Manual 0.1 X10*3/uL (0.0-0.2); Lymphocytes Absolute Manual 1.6 X10*3/uL (1.2-4.9); Monocytes Absolute Manual 0.4 X10*3/uL (0.1-1.2); Neutrophils Absolute Manual 5.2 X10*3/uL (2.0-8.3); White Blood Count 7.3 X10*3/uL (4.8-10.8)
[2024-07-01 19:20] LABS: B Type Natriuretic Peptide 48 pg/mL (<100)
[2024-07-01 19:23] LABS: Influenza A PCR NEGATIVE (Negative); Influenza B PCR NEGATIVE (Negative); Resp Syncy Virus RNA Qual PCR NEGATIVE (Negative); SARS COV2 PCR INHOUSE NEGATIVE (Negative)
[2024-07-01 19:59] LABS: Osmolality Urine 267 mosm/kg (373-1093)
[2024-07-01 20:00] LABS: Appearance Urine Clear; Color Urine Yellow; Glucose Urine UA Negative (Negative); Leukocyte Esterase Urine Trace (Negative); Nitrite Urine Negative (Negative); Specific Gravity - Urine <= 1.005 (1.005-1.025); UMIC TRIGGER UACC YES; Urine Blood Negative (Negative); Urine Ketones Negative (Negative); Urine Protein Trace mg/dL (Neg-Trace)
[2024-07-01 20:05] LABS: Bacteria Urine None Seen (None Seen); Hyaline Casts Urine 0-2 /LPF (0-2); Osmolality, Serum 234 mosm/kg (281-305); RBC Urine 0-2 /HPF (0-2); Squamous Epithelial Cell Urine 0-2 /HPF (0-2); WBC Urine 0-5 /HPF (0-5)
[2024-07-01 20:45] VITALS: BP 172/79; PULSE 81; RESP 17; TEMP 36.6; O2SAT 95
[2024-07-01] MEDS: ondansetron HCL 4 MG/2 ML VIAL IVPUSH (20:55)
[2024-07-01] MEDS: cefTRIAXone sodium 1 GM in 0.9 % Sodium Chloride 50 ML IV (20:55)
--- NOTE | 2024-07-01 21:08 | MHC.EDTECH ---
This tech entered patient room to discover patient had vomited on herself and and on the floor. This tech cleaned patient with family assist canged bedding and gown, cleaned floor and dried. Additionally this tech called housekeeping to mop floor.
[2024-07-01] MEDS: 0.9 % Sodium Chloride 1,000 ML 100 ML IVCONT (21:12)
[2024-07-01] MEDS: Azithromycin 500 MG in 0.9 % Sodium Chloride 250 ML 125 MG IV (21:19)
[2024-07-01 22:00] VITALS: BP 150/79; PULSE 83; RESP 17; TEMP 36.5; O2SAT 97
[2024-07-01 22:10] LABS: Anion Gap 13 (12-20); Blood Urea Nitrogen 9 mg/dL (9-16); Calcium 8.6 mg/dL (8.4-10.2); Carbon Dioxide 21 mmol/L (22-29); Chloride 81 mmol/L (96-108); Creatinine Clr Calc Pharmacy 38.3; Estimated Glomerular Filt Rate > 60; Glucose Random 138 mg/dL (60-115); Potassium 3.8 mmol/L (3.3-5.1); Sodium 111 mmol/L (135-145)
--- NOTE | 2024-07-01 22:18 | PHA.MEDREC ---
Addendum entered by Florencio Santillan RPh 07/01/24 22:42: MED REC CHECKED BY [facility] Original Note: Pharmacy Consult ? Medication Reconciliation Pharmacy has completed the medication reconciliation. Confirmed medications with family who is patients diplomatic interpreter. They were able to confirm the patients medications, dosings and how their taking them.
--- NOTE | 2024-07-01 22:37 | MHC.CM.ED ---
CM completed HCP with assistance of technical assistant who is Romansh speaking. Daughter at bedside. CM wanted to be sure that patient was A&O to make a HCP. HCP completed. Copies given. Uploaded into [facility] and [facility] Expanse. HCP/daughter Dixie Hernandez ([phone] cell).
--- NOTE | 2024-07-01 23:30 | PC.NURSE ---
patient up to bathroom, assist of 1 to commode at bedside. Patient had steady gait and is alert and oriented.
[2024-07-02] VITALS: BP 177/84; PULSE 86; RESP 19; TEMP 36.9; O2SAT 97
[2024-07-02 00:07] LABS: Sodium 112 mmol/L (135-145)
--- NOTE | 2024-07-02 00:13 | PC.NURSE ---
Report given to nurse in ICU at [facility]. All systems reviewed
[2024-07-02 01:32] VITALS: BP 177/84; PULSE 86; RESP 19; TEMP 36.9; O2SAT 97
== END 2024-07-02 01:34 | disposition short-term general hospital (02) ==
PROVIDERS: Physician Assistant Medical; Student in an Organized Health Care Education/Training Program; Emergency Provider Emergency Medicine; PCP Internal Medicine
DX: E87.1 Hypo-osmolality and hyponatremia (principal); R42 Dizziness and giddiness; I44.0 Atrioventricular block, first degree; I10 Essential (primary) hypertension; K21.9 Gastro-esophageal reflux disease without esophagitis; Z03.818 Encounter for observation for suspected exposure to other biological agents ruled out; R51.9 Headache, unspecified
CPT/HCPCS: 0241U; 36415; 70450; 71046; 80048; 80053; 81001; 81003; 83690; 83735; 83880; 83930; 83935; 84295; 84300; 84484; 85007; 85025; 85027; 93005; 96365; 96366; 96367; 96375; 99284; 99285; J0456; J0696; J2405

== ENCOUNTER → 2024-07-01 18:27 | Outpatient (BNV) | payer MEDICARE, SELFPAY | PROVIDERS: Emergency Provider Emergency Medicine; PCP Internal Medicine; Visit Provider Internal Medicine Cardiovascular Disease | DX: R94.31 Abnormal electrocardiogram [ECG] [EKG] (principal) | CPT/HCPCS: 93010 ==

== ENCOUNTER 2024-07-21 09:32 | Outpatient (REF) | payer MEDICARE, SELFPAY ==
--- NOTE | ~2024-07-21 | MM_ITS ---
EXAMINATION: BONE DENSITOMETRY CLINICAL INDICATION: Asymptomatic menopausal state. COMPARISON: Previous BD dated 07/19/2022 and baseline BD dated 12/19/2006. TECHNIQUE: Using a [employer] DXA System (software version: 13.1) manufactured by [employer], dual-energy x-ray absorptiometry was performed of the lumbar spine and left hip. The images are of good technical quality. Summary results are attached. FINDINGS: LEFT FEMUR, NECK: Current: BMD 0.750 g/cm2, Z-score 0.3, T-score -2.1, osteopenia. Prior: BMD 0.752 g/cm2. Baseline: BMD 0.786 g/cm2. LEFT FEMUR, TOTAL: Current: BMD 0.770 g/cm2, Z-score 0.4, T-score -1.9, osteopenia, 3.1% decrease from previous, 9.8% decrease from baseline (<5% change is not significant). Prior: BMD 0.795 g/cm2. Baseline: BMD 0.854 g/cm2. AP SPINE L1-L3 (excluding L4): The data of L1-L4 has been changed to exclude the L4 vertebral body, because scoliosis with degenerative sclerosis at this level may cause overestimation of lumbar spine density. Current: BMD 0.830 g/cm2, Z-score -0.7, T-score -2.8, osteoporosis, 11.0% increase from previous, 0.4% increase from baseline (<5% change is not significant). Prior: BMD 0.748 g/cm2. Baseline: BMD 0.827 g/cm2. IDENTIFIED RISK FACTORS: Menopause, osteoporosis, height loss, low calcium intake. HISTORY OF FRACTURE: None listed. MEDICATIONS: Calcium supplements or multivitamin, vitamin D. MM/XR DEXA axial skeleton IMPRESSION: 1. DIAGNOSIS: Osteoporosis based on the lowest T-score value of -2.8 in the lumbar spine applying World Health Organization criteria. 2. 10-YEAR FRACTURE RISK PREDICTION, FRAX: According to the guidelines, FRAX calculation should only be performed on patients in the osteopenia bone density category. Therefore, FRAX was not performed on this patient. 3. Treatment Recommendations: NOF guidelines recommend consideration for treatment in postmenopausal women and men age 50 and older presenting with the following: -A hip or vertebral (clinical or morphometric) fracture. -T-score less than or equal to -2.5 at the femoral neck or spine after appropriate evaluation to exclude secondary causes. -Low bone mass at the hip or spine and a 10-year fracture probability by FRAX of greater than or equal to 3% for hip fracture or greater than or equal to 20% for major osteoporotic fracture based on the [place] adapted WHO algorithm. 4. Other Recommendations: All treatment decisions require clinical judgment and consideration of individual patient factors, including patient preferences, comorbidities, previous drug use, risk factors not captured in the FRAX model (e.g. frailty, falls, vitamin D deficiency, increased bone turnover, interval significant decline in bone density) and possible under or overestimation of fracture risk by FRAX. Additional medical evaluation for secondary cause of low bone mineral density may be appropriate. FUTURE SCAN RECOMMENDATION: People with diagnosed cases of osteoporosis or at high risk for fracture should have regular bone mineral density tests. For patients eligible for Medicare, routine testing is allowed once every 2 years. The testing frequency can be increased to one year for patients who have rapidly progressing disease, those who are receiving or discontinuing medical therapy to restore bone mass, or have additional risk factors. Electronically signed by: Praneeth Guzman MD 07/28/2024 08:58 AM EDT
== END 2024-07-21 09:33 | disposition home or self-care (01) ==
LOC: HO.MAMMO 09:32
PROVIDERS: PCP Internal Medicine; Visit Provider Obstetrics & Gynecology
DX: Z13.820 Encounter for screening for osteoporosis (principal); Z78.0 Asymptomatic menopausal state
CPT/HCPCS: 77080

== ENCOUNTER 2024-07-26 10:25 | Outpatient (REF) | payer MEDICARE, SELFPAY ==
--- NOTE | ~2024-07-26 | MM_ITS ---
EXAMINATION: MM SCREENING DIGITAL BREAST TOMOSYNTHESIS, BILATERAL CLINICAL INFORMATION: Screening. Asymptomatic. COMPARISON: Mammography: This study is compared with prior exams dating back to 2018. TECHNIQUE: Digital breast tomosynthesis is performed in both the craniocaudal and mediolateral oblique views along with computer-aided detection (CAD). Synthesized 2D images are generated from the tomosynthesis. FINDINGS: There are scattered areas of fibroglandular density (ACR BI-RADS breast composition Category b). There is a focal asymmetry in the lower inner quadrant of the right breast at middle depth. This warrants additional mammographic and targeted sonographic imaging. In the left breast, there are no significant masses, abnormal calcifications, or other abnormalities. MM/MM tomosynthesis screening BI IMPRESSION: Focal asymmetry of the right breast warrants additional mammographic and targeted sonographic imaging. No mammographic signs of malignancy left breast. ASSESSMENT: BI-RADS BI-RADS 0 - Incomplete: Needs additional Imaging. RECOMMENDATION: 1. Additional views of the right breast 2. Targeted ultrasound if warranted after review of the additional views. 3. Radiology department staff will contact the patient for additional imaging. Additional Imaging required This examination should not preclude the clinical evaluation of a suspicious palpable abnormality. This patient's information was entered into a reminder system with a target due date for their next mammogram. Electronically signed by: Mirta Gudino MD 07/30/2024 11:54 AM EDT
== END 2024-07-26 10:26 | disposition home or self-care (01) ==
LOC: HO.MAMMO 10:25
PROVIDERS: PCP Internal Medicine; Visit Provider Internal Medicine
DX: Z12.31 Encounter for screening mammogram for malignant neoplasm of breast (principal)
CPT/HCPCS: 77063; 77067

== ENCOUNTER → 2024-07-26 10:45 | Outpatient (BNV) | payer MEDICARE, SELFPAY | PROVIDERS: PCP Internal Medicine; Visit Provider Radiology Diagnostic Radiology | DX: Z12.31 Encounter for screening mammogram for malignant neoplasm of breast (principal) | CPT/HCPCS: 77063; 77067 ==

== ENCOUNTER 2024-08-23 13:09 | Outpatient (REF) | payer MEDICARE, SELFPAY ==
--- NOTE | ~2024-08-23 | MM_ITS ---
EXAMINATION: MM DIAGNOSTIC DIGITAL BREAST TOMOSYNTHESIS, RIGHT CLINICAL INFORMATION: Diagnostic exam: Evaluate focal asymmetry lower inner quadrant right breast at middle depth seen on screening exam. COMPARISON: Mammography: 07/26/2024, 07/24/2023, 07/19/2022, 07/16/2021, and dating back to 02/07/2017. TECHNIQUE: Digital breast tomosynthesis is performed in the following views: 3-D spot compression right CC and MLO views. Computer-aided diagnosis was used for this study. FINDINGS: There are scattered areas of fibroglandular density (ACR BI-RADS breast composition Category b). Diagnostic views demonstrate the oval focal asymmetry (mass) in the lower inner quadrant right breast, middle depth, has a reniform shape, a notable fatty hilum, and is consistent with an intramammary lymph node. It measures 8 x 6 mm on mammography. In comparison with exams dating back to 2017, this has been present and is unchanged in size and morphology. This finding is benign. No further follow-up warranted. MM/MM tomosynthesis added views R IMPRESSION: -No findings suspicious for malignancy right breast. -Asymmetry in question represents a stable intramammary non-pathologic lymph node. Finding is benign and no further follow-up recommended. -Recommend the patient return to routine annual screening. ASSESSMENT: BI-RADS BI-RADS 2 - Benign Findings RECOMMENDATION: 1 year F/U Results were provided to the patient at time of visit by the technologist. This patient's information was entered into a reminder system with a target due date for their next mammogram. Electronically signed by: Gil Luna MD 08/23/2024 04:53 PM EDT
== END 2024-08-23 13:10 | disposition home or self-care (01) ==
LOC: HO.MAMMO 13:09
PROVIDERS: PCP Internal Medicine; Visit Provider Internal Medicine
DX: N64.89 Other specified disorders of breast (principal)
CPT/HCPCS: 77061; 77065

== ENCOUNTER → 2024-08-23 13:30 | Outpatient (BNV) | payer MEDICARE, SELFPAY | PROVIDERS: PCP Internal Medicine; Visit Provider Radiology Diagnostic Radiology | DX: R92.8 Other abnormal and inconclusive findings on diagnostic imaging of breast (principal) | CPT/HCPCS: 77065; G0279 ==

== ENCOUNTER 2024-10-05 08:07 | Outpatient (REF) | payer MEDICARE, SELFPAY ==
[2024-10-05 08:22] LABS: MANUAL DIFF FLAG NO
[2024-10-05 08:56] LABS: Basophils Absolute Auto 0.1 X10*3/uL (0.0-0.2); Basophils Percent Auto 1.1 % (0-2); Eosinophils Absolute Auto 0.3 X10*3/uL (0.0-0.4); Eosinophils Percent Auto 4.3 % (0-4); Hematocrit 31.1 % (37.0-47.0); Hemoglobin 10.2 g/dl (12.0-16.0); Imm Gran Abs Auto 0.01 X10*3/uL (0.00-0.03); Imm Gran Pct Auto 0.1 % (0.0-0.4); Lymphocytes Absolute Auto 2.9 X10*3/uL (1.2-4.9); Lymphocytes Percent Auto 40.6 % (20-40); Mean Corpuscular HGB Conc 32.8 g/dl (31.0-35.0); Mean Corpuscular Hemoglobin 28.7 pg (27.0-33.0); Mean Corpuscular Volume 87.4 fL (80.0-98.0); Monocytes Absolute Auto 0.8 X10*3/uL (0.1-1.2); Monocytes Percent Auto 11.1 % (2-11); Neutrophils Percent Auto 42.8 % (45-73); Platelet Count 304 X10*3/uL (160-400); Red Blood Count 3.56 X10*6/uL (4.20-5.50); Red Cell Distribution Width 14.3 % (11.0-16.0)
[2024-10-05 09:30] LABS: Alanine Aminotransferase 20 U/L (0-31); Albumin Level 3.8 g/dL (3.5-5.0); Alkaline Phosphatase 73 U/L (39-117); Anion Gap 10 (12-20); Aspartate Amino Transferase 27 U/L (5-31); Bilirubin Total 0.5 mg/dL (0.0-1.0); Blood Urea Nitrogen 24 mg/dL (9-16); Calcium 9.7 mg/dL (8.4-10.2); Carbon Dioxide 26 mmol/L (22-29); Chloride 105 mmol/L (96-108); Cholesterol 174 mg/dL (<200); Estimated Glomerular Filt Rate > 60; Glucose Fasting 97 mg/dL (60-99); HDL Cholesterol 59 mg/dL (>40); Iron 58 mcg/dL (30-160); LDL Cholesterol Calculated 104 mg/dL (<100); Percent Iron Saturation 16 % (15-50); Sodium 137 mmol/L (135-145); Total Iron Binding Capacity 364 mcg/dL (228-428); Total Protein 7.4 g/dL (6.5-8.0); Triglycerides 56 mg/dL (<150); Unsaturated Iron Binding 306 ug/dL
== END 2024-10-05 08:08 | disposition home or self-care (01) ==
LOC: HO.LAB 08:07
PROVIDERS: PCP Internal Medicine; Visit Provider Internal Medicine
DX: I12.9 Hypertensive chronic kidney disease with stage 1 through stage 4 chronic kidney disease, or unspecified chronic kidney disease (principal); D63.1 Anemia in chronic kidney disease; N18.9 Chronic kidney disease, unspecified; K21.9 Gastro-esophageal reflux disease without esophagitis
CPT/HCPCS: 36415; 80053; 80061; 83540; 85025

== ENCOUNTER 2025-01-28 07:47 | Outpatient (REF) | payer MEDICARE, SELFPAY ==
--- OUTSIDE RECORDS SUMMARY | 2025-01-28 07:51 | XMS_ITS | Encounter Summary ---
Author Organization [facility] Address [address] [place] [address] Phone Care Team Providers Care Meeting Coordinator Name Role Phone Tristin Harrison MD Primary Care Provider [phone] Encounter Details Date Type Department Care Team (Late st Contact Info) Description 11/30/2024 Documentation Only [facility] [address] [place] [address] Pamela Santos [address] [place] [address] Social History Tobacco Use Types Packs/Day Years Used Date Smoking Tobacco: Never Assessed Comments Unknown Sex and Gender Information Value Date Recorded Sex Assigned at Not on file Legal Sex Female 6:52 PM EDT Gender Identity Not on file Sexual Orientation Not on file documented as of this encounter Plan of Treatment Upcoming Encounters Date Type Department Care Team (Late st Contact Info) Description 03/03/2025 2:00 PM EDT Office Visit [facility] [address] [place] [address] Estiven Clark MD [address] [place] [address] [place] [address] documented as of this encounter Visit Diagnoses Not on filedocumented in this encounter Care Teams Meeting Coordinator Relationship Specialty Start Date End Date Tristin Harrison MD [address] [place] [address] [address] [place], [place] PCP - General Internal Medicine 06/28/24 documented as of this encounter
--- OUTSIDE RECORDS SUMMARY | 2025-01-28 07:51 | XMS_ITS | Encounter Summary ---
Author Organization [facility] Address [address] [place] [address] Phone Care Team Providers Care Substation Electrician Supervisor Name Role Phone Tristin Harrison MD Primary Care Provider [phone] Encounter Details Date Type Department Care Team (Late st Contact Info) Description 11/30/2024 Documentation Only [facility] [address] [place] [address] Pamela Santos [address] [place] [address] Social History Tobacco Use Types [...] Visit [facility] [address] [place] [address] Estiven Clark MD [address] [place] [address] [place] [address] documented as of this encounter Visit Diagnoses Not on filedocumented in this encounter Care Teams Substation Electrician Supervisor Relationship Specialty Start Date End Date Tristin Harrison MD [address] [place] [address] [address] [place], [place] PCP - General Internal Medicine 06/28/24 documented as of this encounter
--- OUTSIDE RECORDS SUMMARY | 2025-01-28 07:51 | XMS_ITS | Encounter Summary ---
Author Organization [facility] Address [address] [place] [address] Phone Care Team Providers Care Room Service Food Service Attendant Name Role Phone Tristin Harrison MD Primary Care Provider [phone] Encounter Details Date Type Department Care Team (Late st Contact Info) Description 07/13/2024 Documentation Only [facility] [address] [place] [address] Pamela Santos [address] [place] [address] Social History Tobacco Use Types [...] Visit [facility] [address] [place] [address] Estiven Clark MD [address] [place] [address] [place] [address] documented as of this encounter Visit Diagnoses Not on filedocumented in this encounter Care Teams Room Service Food Service Attendant Relationship Specialty Start Date End Date Tristin Harrison MD [address] [place] [address] [address] [place], [place] PCP - General Internal Medicine 06/28/24 documented as of this encounter
--- OUTSIDE RECORDS SUMMARY | 2025-01-28 07:51 | XMS_ITS | Encounter Summary ---
Author Organization [facility] Address [address] [place] [address] Phone Care Team Providers Care Tube Depatcher Name Role Phone Tristin Harrison MD Primary Care Provider [phone] Encounter Details Date Type Department Care Team (Late st Contact Info) Description 11/30/2024 Documentation Only [facility] [address] [place] [address] Pamela Santos [address] [place] [address] Social History Tobacco Use Types [...] Visit [facility] [address] [place] [address] Estiven Clark MD [address] [place] [address] [place] [address] documented as of this encounter Visit Diagnoses Not on filedocumented in this encounter Care Teams Tube Depatcher Relationship Specialty Start Date End Date Tristin Harrison MD [address] [place] [address] [address] [place], [place] PCP - General Internal Medicine 06/28/24 documented as of this encounter
--- OUTSIDE RECORDS SUMMARY | 2025-01-28 07:51 | XMS_ITS | Encounter Summary ---
Author Organization [facility] Address [address] [place] [address] Phone Care Team Providers Care Measurement And Sensing Technician Name Role Phone Tristin Harrison MD Primary Care Provider [phone] Encounter Details Date Type Department Care Team (Late st Contact Info) Description 08/21/2024 Documentation Only [facility] [address] [place] [address] Estiven Clark MD [address] [place] [address] [place] [address] Social History Tobacco Use Types Packs/Day Years [...] Visit [facility] [address] [place] [address] Estiven Clark MD [address] [place] [address] [place] [address] documented as of this encounter Procedures Procedure Name Priority Date/Time Associated Diagnosis Comments RENAL FUNCTION PANEL Routine 08/21/2024 11:28 AM EDT Hyponatremia documented in this encounter Results * (ABNORMAL) Renal Function Panel (08/21/2024 11:28 AM EDT) Glucose 115(H) 70 - 99 mg/dL [facility] BUN 21 8 - 27 mg/dL [facility] Creatinine 0.74 0.57 - 1.00 mg/dL [facility] eGFR CKD-EPI CR 2020 81 >59 mL/min/1.7 3 [facility] BUN/Creatinine Ratio 28 12 - 28 [facility] Sodium 137 134 - 144 mmol/L [facility] Potassium 4.1 3.5 - 5.2 mmol/L [facility] Chloride 102 96 - 106 mmol/L [facility] Bicarbonate (CO2) 23 20 - 29 mmol/L [facility] Calcium 8.7 8.7 - 10.3 mg/dL [facility] Phosphorus 3.8 3.0 - 4.3 mg/dL [facility] Albumin 3.6(L) 3.7 - 4.7 g/dL [facility] Blood (Blood, Venous) 08/21/2024 11:28 AM EDT 08/21/2024 us Estiven Clark MD LAB BLOOD ORDERABLES Final Re sult [facility] [address] [place] [address] documented in this encounter Visit Diagnoses Diagnosis Hyponatremia- Primary documented in this encounter Care Teams Measurement And Sensing Technician Relationship Specialty Start Date End Date Tristin Harrison MD [address] [facility] [address] [place] PCP - General Internal Medicine 06/28/24 documented as of this encounter
--- OUTSIDE RECORDS SUMMARY | 2025-01-28 07:51 | XMS_ITS | Encounter Summary ---
Author Organization [facility] Address [address] [place] [address] Phone Care Team Providers Care Office Machine Punch Operator Name Role Phone Tristin Harrison MD Primary Care Provider [phone] Encounter Details Date Type Department Care Team (Late st Contact Info) Description 07/13/2024 Documentation Only [facility] [address] [place] [address] Pamela Santos [address] [place] [address] Social History Tobacco Use Types [...] Visit [facility] [address] [place] [address] Estiven Clark MD [address] [place] [address] [place] [address] documented as of this encounter Visit Diagnoses Not on filedocumented in this encounter Care Teams Office Machine Punch Operator Relationship Specialty Start Date End Date Tristin Harrison MD [address] [place] [address] [address] [place], [place] PCP - General Internal Medicine 06/28/24 documented as of this encounter
--- OUTSIDE RECORDS SUMMARY | 2025-01-28 07:51 | XMS_ITS ---
Author Organization [facility] Address [address] [place] [address] Care Team Providers Care Rn Delivery Name Role Phone Tristin Harrison MD Primary Care Provider Carson Beaulieu Unavailable [phone] REASON FOR VISIT CANCELING APPT TOMORROW Encounters Encounter Location Date Provider Diagnosis [facility] [address] [place] [address] 12/02/2024 Carson Stafford PLAN OF TREATMENT No Information
--- OUTSIDE RECORDS SUMMARY | 2025-01-28 07:51 | XMS_ITS ---
Author Organization [facility] Address [address] [place] [address] Care Team Providers Care Technical Internship Name Role Phone Tristin Harrison MD Primary Care Provider Carson Beaulieu Unavailable [phone] REASON FOR VISIT Patient presents today for mucous in stool Encounters Encounter Location Date Provider Diagnosis [facility] [address] [place] [address] 12/03/2024 Carson Stafford PLAN OF TREATMENT No Information
--- OUTSIDE RECORDS SUMMARY | 2025-01-28 07:51 | XMS_ITS | Encounter Summary ---
Author Organization [facility] Address [address] [place] [address] Phone Care Team Providers Care Document Specialist Name Role Phone Tristin Harrison MD Primary Care Provider [phone] Encounter Details Date Type Department Care Team (Late st Contact Info) Description 11/30/2024 Documentation Only [facility] [address] [place] [address] Pamela Santos [address] [place] [address] Social History Tobacco Use Types [...] Visit [facility] [address] [place] [address] Estiven Clark MD [address] [place] [address] [place] [address] documented as of this encounter Visit Diagnoses Not on filedocumented in this encounter Care Teams Document Specialist Relationship Specialty Start Date End Date Tristin Harrison MD [address] [place] [address] [address] [place], [place] PCP - General Internal Medicine 06/28/24 documented as of this encounter
--- OUTSIDE RECORDS SUMMARY | 2025-01-28 07:51 | XMS_ITS | Encounter Summary ---
Author Organization [facility] Address [address] [place] [address] Phone Care Team Providers Care Ticket Scheduler Name Role Phone Tristin Harrison MD Primary Care Provider [phone] Encounter Details Date Type Department Care Team (Late st Contact Info) Description 11/30/2024 Documentation Only [facility] [address] [place] [address] Pamela Santos [address] [place] [address] Social History Tobacco Use Types [...] Visit [facility] [address] [place] [address] Estiven Clark MD [address] [place] [address] [place] [address] documented as of this encounter Visit Diagnoses Not on filedocumented in this encounter Care Teams Ticket Scheduler Relationship Specialty Start Date End Date Tristin Harrison MD [address] [place] [address] [address] [place], [place] PCP - General Internal Medicine 06/28/24 documented as of this encounter
--- OUTSIDE RECORDS SUMMARY | 2025-01-28 07:51 | XMS_ITS | Encounter Summary ---
Author Organization [facility] Address [address] [place] [address] Phone Care Team Providers Care Producer Director Name Role Phone Tristin Harrison MD Primary Care Provider [phone] Encounter Details Date Type Department Care Team (Late st Contact Info) Description 11/30/2024 Documentation Only [facility] [address] [place] [address] Pamela Santos [address] [place] [address] Social History Tobacco Use Types [...] Visit [facility] [address] [place] [address] Estiven Clark MD [address] [place] [address] [place] [address] documented as of this encounter Visit Diagnoses Not on filedocumented in this encounter Care Teams Producer Director Relationship Specialty Start Date End Date Tristin Harrison MD [address] [place] [address] [address] [place], [place] PCP - General Internal Medicine 06/28/24 documented as of this encounter
--- OUTSIDE RECORDS SUMMARY | 2025-01-28 07:51 | XMS_ITS | Encounter Summary ---
Author Organization [facility] Address [address] [place] [address] Phone Care Team Providers Care Touring Production Manager Name Role Phone Tristin Harrison MD Primary Care Provider Encounter Details Date Type Department Care Team (Late st Contact Info) Description 07/27/2024 Documentation Only [facility] [address] [place] [address] Pamela Santos [address] [place] [address] Social History Tobacco Use Types [...] [facility] [address] [place] [address] Estiven Clark MD [address] [place] [address] [place] [address] documented as of this encounter Visit Diagnoses Not on filedocumented in this encounter Care Teams Touring Production Manager Relationship Specialty Start Date End Date Tristin Harrison MD [address] [place] [address] [address] [place], [place] PCP - General Internal Medicine 06/28/24 documented as of this encounter
--- OUTSIDE RECORDS SUMMARY | 2025-01-28 07:51 | XMS_ITS | Patient Health Record ---
Author Organization [facility] Address [address] [place] [address] Care Team Providers Care Cafeteria Assistant Name Role Phone Tristin Harrison MD Primary Care Provider Carson Beaulieu Unavailable [phone] REASON FOR REFERRAL No Information MEDICATIONS Medication SIG (Take, Route, Fr equency, Duration) Notes Start Date End Date Status Lansoprazole 30 MG 1 capsule Orally BID Active Ranitidine HCl 75 MG 1 tablet as needed Orally Twice a day Active Lisinopril 10 MG 1 tablet Orally Once a day Active Xanax 0.5 MG 1 tablet Orally prn Active Calcium 600-400 MG-UNIT 1 tablet with a meal Orally TID Active Vitamin D3 1000 UNIT 1 tablet Orally Once a day Active Fish Oil 1000 MG 1 capsule Orally Once a day Active SOCIAL HISTORY Sex Assigned At : Social History Observation Description Sex Assigned At Unknown PROBLEMS Problem Type ICD Code Onset Dates Problem Status W/U Status Risk SNOMED Code Notes Problem Encounter for screening for malignant neoplasm of colon (Z12.11) Active confirmed 417768693 Problem History of adenomatous polyp of colon (Z86.010) Active confirmed 664312311 Problem Gastroesophageal reflux disease, esophagitis presence not specified (K21.9) Active confirmed 905612463 Encounters Encounter Location Date Provider Diagnosis [facility] [address] [place] [address] 12/03/2024 Carson Stafford [facility] [address] [place] [address] 12/02/2024 Carson Stafford PLAN OF TREATMENT Future Test Test Name Order Date COLONOSCOPY 09/01/2012 UPPER GI ENDOSCOPY 09/16/2017 COLONOSCOPY 09/16/2017 Insurance Providers Payer Name Payer Address Payer Phone Subscriber Number Group Number Insured Name Patient Relationship to Insured Coverage Start Date Coverage End Date [facility] [address] [facility] [place] [phone] [id number] SAGE COLE Self - patient is the insured MEDICARE OF [place] [address] [place] [address] [phone] [id number] SAGE COLE Self - patient is the insured MEDICAL (GENERAL) HISTORY Medical History History ICD Code GERD--neg. EGD in 2006 excep t for small HH and reflux--no esophagitis nor Pineda's esophagus, gastric biopsies were negative for H. pylori Colon polyps-tubular adenoma s removed in 2001 and 10/2012; negative colonoscopy in 2006; diverticulosis and internal hemorrhoids noted on the colonoscopies Nasal polyps Gallstones HTN Denies [place],DM,CVA,Lung disease,renal dise ase Surgical History Surgery Date(Month/Year) Nasal polyps
--- OUTSIDE RECORDS SUMMARY | 2025-01-28 07:51 | XMS_ITS | Encounter Summary ---
Author Organization [facility] Address [address] [place] [address] Phone Care Team Providers Care Television Newscast Director Name Role Phone Tristin Harrison MD Primary Care Provider [phone] Encounter Details Date Type Department Care Team (Late st Contact Info) Description 12/14/2024 Documentation Only [facility] [address] [place] [address] Pamela Santos [address] [place] [address] Social History Tobacco Use Types [...] Visit [facility] [address] [place] [address] Estiven lCark MD [address] [place] [address] [place] [address] documented as of this encounter Visit Diagnoses Not on filedocumented in this encounter Care Teams Television Newscast Director Relationship Specialty Start Date End Date Tristin Harrison MD [address] [place] [address] [address] [place], [place] PCP - General Internal Medicine 06/28/24 documented as of this encounter
--- OUTSIDE RECORDS SUMMARY | 2025-01-28 07:51 | XMS_ITS | Encounter Summary ---
Author Organization [facility] Address [address] [place] [address] Phone Care Team Providers Care Lozenge Maker Name Role Phone Tristin Harrison MD Primary Care Provider Encounter Details Date Type Department Care Team (Late st Contact Info) Description 12/13/2024 Documentation Only [facility] [address] [place] [address] Pamela Santos [address] [place] [address] Social History Tobacco Use Types [...] [facility] [address] [place] [address] Estiven Clark MD [address] [place] [address] [place] [address] documented as of this encounter Visit Diagnoses Not on filedocumented in this encounter Care Teams Lozenge Maker Relationship Specialty Start Date End Date Tristin Harrison MD [address] [place] [address] [address] [place], [place] PCP - General Internal Medicine 06/28/24 documented as of this encounter
--- OUTSIDE RECORDS SUMMARY | 2025-01-28 07:51 | XMS_ITS | Clinical Summary ---
Author Organization [facility] Address [address] [place] [address] Phone Care Team Providers Care Senior Medical Writer Name Role Phone Tristin Harrison MD Primary Care Provider [phone] Allergies No known active allergies Medications ALPRAZolam (XANAX) 0.25 MG tablet Take 0.25 mg by mouth 1 (one) time each day if needed Active fexofenadine (DAKOTAH) 60 MG tablet Take 60 mg by mouth in the morning and 60 mg in the evening. Active lansoprazole (PREVACID) [address] capsule Take 30 mg by mouth 07/02/2024 Active lisinopril 10 MG tablet Take 10 mg by mouth in the morning. Active vancomycin (VANCOCIN) 125 MG capsule TAKE 1 CAPSULE BY MOUTH EVERY 6 HOURS UNTIL FINISHED 08/09/2024 Active Active Problems Problem Noted Date Diagnosed Date Chronic kidney disease, stage 2 (mild) 4 History of acute kidney injury Hypertension Hyponatremia Normocytic anemia Retention of urine Sepsis Encounters Date Type Department Care Team Description 12/14/2024 Documentation Only [facility] [address] [place] [address] Pamela Santos 12/13/2024 Documentation Only [facility] [address] [place] [address] Pamela Santos 12/13/2024 Documentation Only [facility] [address] [place] [address] Pamela Santos 12/02/2024 2:45 PM EST Office Visit [facility] [place], [address] [place] [address] Estiven Clark MD Acute kidney failure with tubular necrosis (HCC) (Primary Dx) 11/30/2024 Documentation Only [facility] [place], [address] [place] [address] Tom, Pamela 11/30/2024 Documentation Only [facility] [place], [address] [place] [address] Tom, Pamela 11/30/2024 Documentation Only [facility] [place], [address] [place] [address] Tom, Pamela 11/30/2024 Documentation Only [facility] [place], [address] [place] [address] Tom, Pamela 11/30/2024 Documentation Only [facility] [place], [address] [place] [address] Tom, Pamela 11/30/2024 Documentation Only [facility] [place], [address] [place] [address] Tom, Pamela 11/30/2024 Documentation Only [facility] [place], [address] [place] [address] Tom, Pamela 11/30/2024 Documentation Only [facility] [place], [address] [place] [address] Tom, Pamela 11/30/2024 Documentation Only [facility] [place], [address] [place] [address] Tom, Pamela 11/29/2024 Office Communication [facility] [place], [address] [place] [address] Tom, Pmaela from Last 3 Months Social History Tobacco Use Types Packs/Day Years Used Date Smoking Tobacco: Never Assessed Comments Unknown Sex and Gender Information Value Date Recorded Sex Assigned at Not on file Legal Sex Female 6:52 PM EDT Gender Identity Not on file Sexual Orientation Not on file Last Filed Vital Signs Vital Sign Reading Time Taken Comments Blood Pressure 174/74 12/02/2024 2:59 PM EST Pulse 87 12/02/2024 2:59 PM EST Temperature - - Respiratory Rate - - Oxygen Saturation - - Inhaled Oxygen Concentration - - Weight - - Height - - Body Mass Index - - Plan of Treatment Upcoming Encounters Date Type Department Care Team (Late st Contact Info) Description 03/03/2025 2:00 PM EDT Office Visit [facility] [place], [address] [place] [id number] Estiven Clark MD [address] [address] [place] [address] Health Maintenance Due Date Last Done Comments Pneumococcal Vaccine: 65+ Ye ars (1 of 2 - PCV) 1951 Influenza Vaccine (#1) 2024 Hepatitis B Vaccine Aged Out No longe r eligible based on patient's age to complete this topic Procedures Procedure Name Priority Date/Time Associated Diagnosis Comments B12/FOLATE Routine 12/25/2024 12:08 PM EST Acute kidney failure with tubular necrosis (HCC) RENAL FUNCTION PANEL Routine 12/25/2024 12:08 PM EST Acute kidney failure with tubular necrosis (HCC) IRON PANEL (FE, TIBC, TSAT) Routine 12/25/2024 12:08 PM EST Acute kidney failure with tubular necrosis (HCC) FERRITIN Routine 12/25/2024 12:08 PM EST Acute kidney failure with tubular necrosis (HCC) CBC AND DIFFERENTIAL Routine 12/25/2024 12:08 PM EST Acute kidney failure with tubular necrosis (HCC) PROTEIN / CREATININE RATIO, URINE Routine 11/29/2024 4:15 PM EST Lichen sclerosus of vulva Hyponatremia Elevated blood pressure reading Routine general medical examination at a health care facility URINALYSIS, COMPLETE Routine 11/29/2024 4:15 PM EST Lichen sclerosus of vulva Hyponatremia Elevated blood pressure reading Routine general medical examination at a health care facility RENAL FUNCTION PANEL Routine 11/29/2024 4:15 PM EST Lichen sclerosus of vulva Hyponatremia Elevated blood pressure reading Routine general medical examination at a health care facility CBC AND DIFFERENTIAL Routine 11/29/2024 4:15 PM EST Lichen sclerosus of vulva Hyponatremia Elevated blood pressure reading Routine general medical examination at a [facility] care facility MICROSCOPIC EXAMINATION - DO NOT USE Routine 11/29/2024 4:15 PM EST from Last 3 Months Results * Vitamin B12/Folate (12/25/2024 12:08 PM EST) Vitamin B-12 916 232 - 1,245 pg/mL [facility] Folate >20.0 >3.0 ng/mL [facility] Comment: A serum folate concentration of less than 3.1 ng/mL is considered to represent clinical deficiency. 12/25/2024 12:0 8 PM EST 12/25/2024 us Estiven Clark MD LAB BLOOD ORDERABLES Final Re sult [facility] [address] [place] [address] * Iron Panel (Fe, TIBC, TSAT) (12/25/2024 12:08 PM EST) TIBC 405 250 - 450 ug/dL [facility] UIBC 319 118 - 369 ug/dL [facility] Iron 86 27 - 139 ug/dL [facility] Iron Saturation (TSat) 21 15 - 55 % [facility] Blood (Blood, Venous) 12/25/2024 12:08 PM EST 12/25/2024 us Estiven Clark MD LAB BLOOD ORDERABLES Final Re sult [facility] [address] [place] [address] * (ABNORMAL) CBC and Differential (12/25/2024 12:08 PM EST) Only the most recent of2 resultswithin the time period is included. WBC 6.5 3.4 - 10.8 x10E3/uL [facility] RBC 3.50(L) 3.77 - 5.28 x10E6/uL [facility] Hemoglobin 9.4(L) 11.1 - 15.9 g/dL [facility] Hematocrit 29.6(L) 34.0 - 46.6 % [facility] MCV 85 79 - 97 fL [facility] MCH 26.9 26.6 - 33.0 pg [facility] MCHC 31.8 31.5 - 35.7 g/dL [facility] RDW 13.6 11.7 - 15.4 % [facility] Platelets 245 150 - 450 x10E3/uL [facility] Neutrophils Relative 49 Not Estab. % [facility] Lymphocytes Relative 32 Not Estab. % [facility] Monocytes 10 Not Estab. % [facility] Eosinophils Relative 7 Not Estab. % [facility] Basophils Relative 1 Not Estab. % [facility] Neutrophils Absolute 3.2 1.4 - 7.0 x10E3/uL [facility] Lymphocytes Absolute 2.1 0.7 - 3.1 x10E3/uL [facility] Monocytes Absolute 0.7 0.1 - 0.9 x10E3/uL [facility] Eosinophils Absolute 0.4 0.0 - 0.4 x10E3/uL [facility] Basophils Absolute 0.1 0.0 - 0.2 x10E3/uL [facility] Immature Granulocytes 1 Not Estab. % [facility] Immature Grans (Absolute) 0.0 0.0 - 0.1 x10E3/uL [facility] Blood (Blood, Venous) 12/25/2024 12:08 PM EST 12/25/2024 Estiven Clark MD LAB BLOOD ORDERABLES Final Re sult Performing Organization Address City/[facility]/ZIP Co de Phone Number [facility] [address] [place] [address] * Ferritin (12/25/2024 12:08 PM EST) Ferritin 19 15 - 150 ng/mL [facility] Blood (Blood, Venous) 12/25/2024 12:08 PM EST 12/25/2024 Estiven Clark MD LAB BLOOD ORDERABLES Final Re sult [facility] [address] [place] [address] * (ABNORMAL) Renal Function Panel (12/25/2024 12:08 PM EST) Only the most recent of2 resultswithin the time period is included. Glucose 107(H) 70 - 99 mg/dL [facility] BUN 23 8 - 27 mg/dL [facility] Creatinine 0.90 0.57 - 1.00 mg/dL [facility] eGFR CKD-EPI CR 2020 64 >59 mL/min/1.7 3 [facility] BUN/Creatinine Ratio 26 12 - 28 [facility] Sodium 136 134 - 144 mmol/L [facility] Potassium 4.5 3.5 - 5.2 mmol/L [facility] Chloride 100 96 - 106 mmol/L [facility] Bicarbonate (CO2) 23 20 - 29 mmol/L [facility] Calcium 9.6 8.7 - 10.3 mg/dL [facility] Phosphorus 4.3 3.0 - 4.3 mg/dL [facility] Albumin 3.9 3.7 - 4.7 g/dL [facility] Blood (Blood, Venous) 12/25/2024 12:08 PM EST 12/25/2024 us Estiven Clark MD LAB BLOOD ORDERABLES Final Re sult [facility] [address] [place] [address] * Urinalysis, Complete w/reflex to Culture (11/29/2024 4:15 PM EST) Specific [place], Urine 1.007 1.005 - 1.030 [facility] pH Urine 6.0 5.0 - 7.5 [facility] Color, Urine Yellow Yellow [facility] Appearance Urine Clear Clear [facility] WBC Esterase Urine Negative Negative [facility] Protein, Ur Negative Negative/Tra ce [facility] Glucose, Ur Negative Negative [facility] Ketones, Urine Negative Negative [facility] Blood Urine Negative Negative [facility] Bilirubin Urine Negative Negative [facility] Urobilinogen Urine 0.2 0.2 - 1.0 mg/dL [facility] Nitrite, Urine Negative Negative [facility] [phone] Microscopic Examination Comment [facility] Comment:Microscopic follows if indicated. Other Microsc. Observations See below: [facility] Comment:Microscopic was arsen cated and was performed. URINALYSIS REFLEX Comment [facility] Comment:This specimen will n ot reflex to a Urine Culture. Urine (Urine, Clean Catch) 11/29/2024 4:15 PM EST 11/29/2024 us Estiven Clark MD LAB URINE ORDERABLES Final Re sult [facility] [address] [place] [address] * Microscopic Examination (11/29/2024 4:15 PM EST) WBC, Urine 0-5 0 - 5 /hpf [facility] RBC, Urine None seen 0 - 2 /hpf [facility] Squamous Epithelial, Urine None seen 0 - 10 /hpf [facility] Casts None seen None seen /lpf [facility] Bacteria, Urine None seen None seen/Few [facility] 11/29/2024 4:15 PM EST 11/29/2024 Estiven Clark MD LAB MICROBIOLOGY - GENERAL OR DERABLES Final Result Performing Organization Address City/[facility]/ZIP Co de Phone Number [facility] [address] [place] [address] * (ABNORMAL) Urine Protein / creatinine ratio (11/29/2024 4:15 PM EST) Creatinine, Ur 21.4 Not Estab. mg/dL [facility] Protein, Ur 5.2 Not Estab. mg/dL [facility] Urine Protein/Creati nine Ratio 243(H) 0 - 200 mg/g creat [facility] Urine (Urine, Clean Catch) 11/29/2024 4:15 PM EST 11/29/2024 Estiven Clark MD LAB URINE ORDERABLES Final Re sult Performing Organization Address City/[facility]/ZIP Co de Phone Number [facility] [address] [place] [address] from Last 3 Months Insurance Care Teams Senior Medical Writer Relationship Specialty Start Date End Date Tristin Harrison MD [address] [place] [address] [address] [place] PCP - General Internal Medicine 06/28/24
--- OUTSIDE RECORDS SUMMARY | 2025-01-28 07:51 | XMS_ITS | Encounter Summary ---
Author Organization [facility] Address [address] [place] [address] Phone Care Team Providers Care Copper Plater Name Role Phone Tristin Harrison MD Primary Care Provider [phone] Encounter Details Date Type Department Care Team (Late st Contact Info) Description 12/13/2024 Documentation Only [facility] [address] [place] [address] Pamela Santos [address] [place] [address] Social History Tobacco Use Types [...] Visit [facility] [address] [place] [address] Estiven Clark MD [address] [place] [address] [place] [address] documented as of this encounter Visit Diagnoses Not on filedocumented in this encounter Care Teams Copper Plater Relationship Specialty Start Date End Date Tristin Harrison MD [address] [place] [address] [address] [place], [place] PCP - General Internal Medicine 06/28/24 documented as of this encounter
--- OUTSIDE RECORDS SUMMARY | 2025-01-28 07:51 | XMS_ITS | Encounter Summary ---
Author Organization [facility] Address [address] [place] [address] Phone Care Team Providers Care Department Assistant Name Role Phone Tristin Harrison MD Primary Care Provider [phone] Encounter Details Date Type Department Care Team (Late st Contact Info) Description 11/30/2024 Documentation Only [facility] [address] [place] [address] Pamela Santos [address] [place] [address] Social History Tobacco Use Types [...] Visit [facility] [address] [place] [address] Estiven Clark MD [address] [place] [address] [place] [address] documented as of this encounter Visit Diagnoses Not on filedocumented in this encounter Care Teams Department Assistant Relationship Specialty Start Date End Date Tristin Harrison MD [address] [place] [address] [address] [place], [place] PCP - General Internal Medicine 06/28/24 documented as of this encounter
--- OUTSIDE RECORDS SUMMARY | 2025-01-28 07:51 | XMS_ITS | Encounter Summary ---
Author Organization [facility] Address [address] [place] [address] Phone Care Team Providers Care Winchman/Crane Operator Name Role Phone Tristin Harrison MD Primary Care Provider [phone] Encounter Details Date Type Department Care Team (Late st Contact Info) Description 11/30/2024 Documentation Only [facility] [address] [place] [address] Pamela Santos [address] [place] [address] Social History Tobacco Use Types [...] Visit [facility] [address] [place] [address] Estiven Clark MD [address] [place] [address] [place] [address] documented as of this encounter Visit Diagnoses Not on filedocumented in this encounter Care Teams Winchman/Crane Operator Relationship Specialty Start Date End Date Tristin Harrison MD [address] [place] [address] [address] [place], [place] PCP - General Internal Medicine 06/28/24 documented as of this encounter
--- OUTSIDE RECORDS SUMMARY | 2025-01-28 07:51 | XMS_ITS | Encounter Summary ---
Author Organization [facility] Address [address] [place] [address] Phone Care Team Providers Care High Lift Driver Name Role Phone Tristin Harrison MD Primary Care Provider [phone] Encounter Details Date Type Department Care Team (Late st Contact Info) Description 11/30/2024 Documentation Only [facility] [address] [place] [address] Pameal Santos [address] [place] [address] Social History Tobacco Use Types [...] Visit [facility] [address] [place] [address] Estiven Clark MD [address] [place] [address] [place] [address] documented as of this encounter Visit Diagnoses Not on filedocumented in this encounter Care Teams High Lift Driver Relationship Specialty Start Date End Date Tristin Harrison MD [address] [place] [address] [address] [place], [place] PCP - General Internal Medicine 06/28/24 documented as of this encounter
--- OUTSIDE RECORDS SUMMARY | 2025-01-28 07:51 | XMS_ITS | Encounter Summary ---
Author Organization [facility] Address [address] [place] [address] Phone Care Team Providers Care Tube Winder Hand Name Role Phone Tristin Harrison MD Primary Care Provider [phone] Encounter Details Date Type Department Care Team (Late st Contact Info) Description 07/29/2024 Documentation Only [facility] [address] [place] [address] Pamela Santos [address] [place] [address] Social History Tobacco Use Types [...] Visit [facility] [address] [place] [address] Estiven Clark MD [address] [place] [address] [place] [address] documented as of this encounter Visit Diagnoses Not on filedocumented in this encounter Care Teams Tube Winder Hand Relationship Specialty Start Date End Date Tristin Harrison MD [address] [place] [address] [address] [place], [place] PCP - General Internal Medicine 06/28/24 documented as of this encounter
--- OUTSIDE RECORDS SUMMARY | 2025-01-28 07:51 | XMS_ITS | Encounter Summary ---
Author Organization [facility] Address [address] [place] [address] Phone Care Team Providers Care Auto Damage Appraiser Name Role Phone Tristin Harrison MD Primary Care Provider [phone] Encounter Details Date Type Department Care Team (Late st Contact Info) Description 07/29/2024 Documentation Only [facility] [address] [place] [address] Pamlea Santos [address] [place] [address] Social History Tobacco Use Types [...] Visit [facility] [address] [place] [address] Estiven Clark MD [address] [place] [address] [place] [address] documented as of this encounter Visit Diagnoses Not on filedocumented in this encounter Care Teams Auto Damage Appraiser Relationship Specialty Start Date End Date Tristin Harrison MD [address] [place] [address] [address] [place], [place] PCP - General Internal Medicine 06/28/24 documented as of this encounter
[2025-01-28 07:59] LABS: MANUAL DIFF FLAG NO
[2025-01-28 08:29] LABS: Basophils Absolute Auto 0.1 X10*3/uL (0.0-0.2); Basophils Percent Auto 1.4 % (0-2); Eosinophils Absolute Auto 0.4 X10*3/uL (0.0-0.4); Eosinophils Percent Auto 5.7 % (0-4); Hemoglobin 10.2 g/dl (12.0-16.0); Imm Gran Abs Auto 0.01 X10*3/uL (0.00-0.03); Imm Gran Pct Auto 0.2 % (0.0-0.4); Lymphocytes Absolute Auto 2.7 X10*3/uL (1.2-4.9); Lymphocytes Percent Auto 42.8 % (20-40); Mean Corpuscular HGB Conc 31.9 g/dl (31.0-35.0); Mean Corpuscular Hemoglobin 27.1 pg (27.0-33.0); Mean Corpuscular Volume 85.1 fL (80.0-98.0); Mean Platelet Volume 11.6 fL (9.4-12.3); Monocytes Absolute Auto 0.7 X10*3/uL (0.1-1.2); Monocytes Percent Auto 11.5 % (2-11); Neutrophils Absolute Auto 2.4 x10*3/uL (2.0-8.3); Neutrophils Percent Auto 38.4 % (45-73); Platelet Count 286 X10*3/uL (160-400); Red Blood Count 3.76 X10*6/uL (4.20-5.50); Red Cell Distribution Width 16.7 % (11.0-16.0); White Blood Count 6.4 X10*3/uL (4.8-10.8)
[2025-01-28 09:18] LABS: Alanine Aminotransferase 19 U/L (0-31); Alkaline Phosphatase 70 U/L (39-117); Anion Gap 12 (12-20); Aspartate Amino Transferase 23 U/L (5-31); Bilirubin Total 0.6 mg/dL (0.0-1.0); Blood Urea Nitrogen 21 mg/dL (9-16); Calcium 9.7 mg/dL (8.4-10.2); Carbon Dioxide 27 mmol/L (22-29); Chloride 104 mmol/L (96-108); Estimated Glomerular Filt Rate > 60; Glucose Random 99 mg/dL (60-115); Iron 80 mcg/dL (30-160); Percent Iron Saturation 21 % (15-50); Potassium 4.6 mmol/L (3.3-5.1); Sodium 138 mmol/L (135-145); Total Iron Binding Capacity 385 mcg/dL (228-428); Unsaturated Iron Binding 305 ug/dL
== END 2025-01-28 07:48 | disposition home or self-care (01) ==
LOC: HO.LAB 07:47
PROVIDERS: PCP Internal Medicine; Visit Provider Internal Medicine
DX: I10 Essential (primary) hypertension (principal); D64.9 Anemia, unspecified
CPT/HCPCS: 36415; 80053; 83540; 85025

== ENCOUNTER 2025-05-04 09:58 | Outpatient (AMB) | payer MEDICARE, SELFPAY ==
--- NOTE | 2025-05-04 09:56 | A.OFFPC_ITS ---
Intake Visit Reasons: routine Allergies No Known Allergies Allergy (Mild, Verified 07/01/24 18:27) NOT APPLICABLE [facility] Medical History GERD (gastroesophageal reflux disease) HTN (hypertension) Family History Sister HTN (hypertension) Social History Household Members: None Housing: House Alcohol intake: never Patient Tobacco Use Status: Never used Tobacco Current occupational status: retired Sexual orientation: Straight/Heterosexual Gender identity: Female Physical exam (Primary Care) Tobacco/Smoking Status: Tobacco use Status Patient Tobacco Use Status Never used Tobacco 07/01/24 19:05 Coding
--- NOTE | 2025-05-04 09:59 | A.OFFPC_ITS ---
Vital Signs 05/04/25 10:01 Height 4 ft 8 in Weight 54.431 kg BMI 26.9 BP 154/80 H Respiration 14 Pulse 82 Pulse Source Pulse Oximeter Temp 98.2 F Temp Source Temporal Artery Scan Pulse Oximetry (%) 99 Oxygen Delivery Method Room Air Intake Visit Reasons: routine Financial Services Intern Required: No Accompanied by: Daughter Allergies No Known Allergies Allergy (Mild, Verified 05/04/25 10:00) NOT APPLICABLE HPI HPI Comments History of Present Illness Details 80-year-old female with history of hyper tension, GERD, CKD stage 3, anxiety, osteoporosis, and hyponatremia presents to the office today for management of chronic conditions as well as to establish care. She is accompanied by her daughter Dixie, who assists with Bengali translation, the patient is able to understand and speak some Belarusian. Hypertension-BP in the office 154/80. She follows with Nephrology who states her systolic pressure should be in the 140s-150s. Continues on lisinopril 10 mg daily. She is also reporting some anxiety. Pre diabetes-last hemoglobin A1c 5.9%. Not on medication CKD stage 3-following closely with Nephrology, notes to be requested History of hyponatremia-hospitalization at [facility] requiring ICU due to severe hyponatremia with levels as low as 109 resulting in seizures. 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 Following with Nephrology Ubyhiod-BMH-1 score 10. Taking bupropion for many years as she was previously experiencing paranoia which has resolved. However, anxiety persists. She does take alprazolam 0.25 mg only as needed, about 2-3 times per week. No depression Functional status-ambulating without any assistive devices. Lives at home, independent with ADLs Concerns: Reports having a mechanical fall 2 weeks ago. She reports she was in the garden weeding when she bent over and lost her balance. No head strike or loss of consciousness. Reports she fell on her side with a twisting motion. She describes the pain in her groin but when she points, the pain is in the umbilical/suprapubic area. She was able to get up without any assistance. She states pain is worse when bending forward and when getting in and out of the tab. She describes an aching sensation. Initially described a burning pain. There is no radiation of the pain. She does have chronic back pain but denies any worsening of this. She denies any prodrome including vision changes, lightheadedness, shortness of breath, chest pain. She reports relief with heating pad as well as compression. She did take ibuprofen initially but discontinued this. She is constipated at baseline, no change in bowel habits. No hx abdominal surgeries ROS: General: No fevers, malaise, unintentional weight loss Cardiovascular: No chest pain, palpitations, or leg edema Respiratory: No shortness of breath, wheezing, cough GI: See hpi : No dysuria, hematuria, increased urinary frequency, decreased urinary output MSK: See hpi Neuro: No headaches, weakness, paresthesias Skin: No rashes or lesions EXAM: Constitutional - Awake and Alert, No apparent distress Eyes - PERRLA, EOMI Cardiovascular - S1S2, RRR, No edema Respiratory - Normal lung expansion, Normal respiratory effort, No respiratory distress, CTA bilaterally Gastrointestinal - mild ttp without guarding or rebound. +BS, nondistended. palpable bulge just R of midline in the periumbilical region, reducible Extremities - no calf tenderness bilaterally, no swelling Musculoskeletal - Normal inspection, normal ROM Skin - Warm/Dry Neurological - Alert & oriented x3 Psychological - Appropriate affect [facility] Medical History (Updated 05/04/25 @ 10:58 by MARGOT Rosales) Anemia Hyponatremia SIADH (syndrome of inappropriate ADH production) Anemia of chronic disease Prediabetes Osteoporosis Paranoia Anxiety CKD (chronic kidney disease), stage III GERD (gastroesophageal reflux disease) HTN (hypertension) Family History Sister HTN (hypertension) Social History Household Members: None Housing: House Alcohol intake: never Patient Tobacco Use Status: Never used Tobacco Current occupational status: retired Sexual orientation: Straight/Heterosexual Gender identity: Female Questionnaire PHQ-9 Over the last 2 weeks, how often have you been bothered by any of the following problems? 1. Little interest or pleasure in doing things: not at all 2. Feeling down, depressed, or hopeless: not at all 3. Trouble falling or staying asleep, or sleeping too much: more than half the days 4. Feeling tired or having little energy: not at all 5. Poor appetite or overeating: not at all 6. Feeling bad about yourself - or that you are a failure or have let yourself or your family down: not at all 7. Trouble concentrating on things, such as reading the newspaper or watching television: not at all 8. Moving or speaking so slowly that other people could have noticed. Or the opposite - being so fidgety or restless that you have been moving around a lot more than usual: not at all 9. Thoughts that you would be better off or of hurting yourself in some way: not at all Total score: 2 Source: Developed by Drs. Carson Lucas, Sonia Live, Peter Escobar and colleagues, with an educational ede from [employer]. Thrive Questionnaire Date Thrive assessed: 05/04/25 I am a: Patient What is your living situation today?: I have a steady place to live Within the past 12 months, did the food you bought not last and you didn't have the money to get more?: Never true Within the past 12 months, did you worry whether your food would run out before you got money to buy more?: Never true Do you have trouble paying for medicines?: No Do you have trouble getting transportation to medical appointments?: No Do you have trouble paying your heating and electricity bill?: No Do you have trouble taking care of your child, family member or friend?: No Do you have trouble with day-to-day activities such as bathing, preparing meals, shopping, managing finances, etc.?: No Are you currently unemployed and looking for a job?: No Are you interested in more education?: No Please select the resources that you would like help with: None THRIVE Score: 0 XENAI-7 AMB Questionnaire XENIA-7 Date XENIA - 7 assessed: 05/04/25 Feeling nervous, anxious, or on edge: 2 = More than half the days Not being able to stop or control worryin = Several days Worrying too much about different things: 0 = Not at all Trouble relaxin = More than half the days Being so restless that it is hard to sit still: 3 = Nearly every day Becoming easily annoyed or irritable: 2 = More than half the days Feeling afraid as if something awful might happen: 0 = Not at all Total XENIA-7 score (0-4 normal; 5-9 mild; 10-14 moderate; 15-21 severe): 10 Source: Developed by Drs. Carson Lucas, Sonia Live, Peter Escobar and colleagues, with an educational ede from [employer]. Physical exam (Primary Care) Vital Signs: Last Vital Signs Temp 98.2 F 05/04/25 10:01 Pulse 82 05/04/25 10:01 Resp 14 05/04/25 10:01 BP 154/80 H 05/04/25 10:01 Pulse Ox 99 05/04/25 10:01 Oxygen Delivery Method Room Air 05/04/25 10:01 BMI result Body Mass Index 26.9 Tobacco/Smoking Status: Tobacco use Status Patient Tobacco Use Status Never used Tobacco 05/04/25 10:05 PHQ-9: PHQ-9 Score PHQ-9: Total score 2 05/04/25 10:53 Thrive Assessment: Date of Thrive Assessment Date Thrive assessed 05/04/25 05/04/25 10:53 Coding Level of Care Code New Pt Level 4 (57037) Complex EM visit Add On G2211 Diagnoses CKD (chronic kidney disease), stage III N18.30 Anxiety F41.9 Prediabetes R73.03 HTN (hypertension) I10 SIADH (syndrome of inappropriate ADH production) E22.2 Abdominal pain R10.9 Assessment & Plan Assessment & Plan (1) CKD (chronic kidney disease), stage III: Code(s): N18.30 - Chronic kidney disease, stage 3 unspecified Category: Medical Plan: Stable. Continue following with nephrology. BMP ordered (2) Anxiety: Code(s): F41.9 - Anxiety disorder, unspecified Category: Medical Plan: Uncontrolled. Will trial low dose sertraline 25mg daily. Counseled on dosing and side effects. Will monitor sodium levels closely though recently labs well controlled at 138. Also given trazodone to help with insomnia as needed. (3) Prediabetes: Code(s): R73.03 - Prediabetes Category: Medical Plan: Hgb A1c ordered. Diet low in refined sugars and simple carbohydrates advised (4) HTN (hypertension): Code(s): I10 - Essential (primary) hypertension Category: Medical Plan: Controlled per nephrology recommendations to keep SBP 140-150s. Continue lisinopril 10mg daily (5) SIADH (syndrome of inappropriate ADH production): Code(s): E22.2 - Syndrome of inappropriate secretion of antidiuretic hormone Category: Medical Plan: Possible given hospitalization for hyponatremia with Na level as low as 9. However, levels are now 138, so etiology is unclear. Fluid restrictions and continue following with nephrology. Will monitor sodium levels closely (6) Abdominal pain: Code(s): R10.9 - Unspecified abdominal pain Category: Medical Plan: Question of hernia. CT abd/pelvis ordered. Continue with conservative managemnent Plan Follow up in one month for medication evaluation and physical exma. Labs to be completed. Ct ordered. Trial sertraline and trazodone with close monitoring of sodium levels Orders: Orders CT abdomen pelvis wo IV con Today R10.9 - Unspecified abdominal pain, W19.XXXA - Unspecified fall, initial encounter Basic Metabolic Panel Today D64.9 - Anemia, unspecified, I10 - Essential (primary) hypertension Complete Blood Count Auto Diff Today D64.9 - Anemia, unspecified, I10 - Essential (primary) hypertension Hemoglobin A1c Today R73.03 - Prediabetes Medications: New trazodone 25 - 50 mg (0.5 - 1 x 50 mg) PO BEDTIME PRN 90 tabs 0RF sleep sertraline Take 1/2 tab daily x 7 days, then take 1 tab daily 25 mg PO DAILY 90 tabs 0RF
[2025-05-04 10:01] VITALS: BP 154/80; PULSE 82; RESP 14; TEMP 36.8; O2SAT 99; BMI 26.9
--- OUTSIDE RECORDS SUMMARY | 2025-05-04 10:33 | XMS_ITS | Encounter Summary ---
Author Organization [facility] Address [address] [place] [address] Phone Care Team Providers Care Email Campaign Manager Name Role Phone Tristin Harrison MD Primary Care Provider [phone] Encounter Details Date Type Department Care Team (Late Contact Info) Description 07/29/2024 Documentation Only [facility] [address] [place] [address] Pamela Santos [address] [place] [address] Social History Tobacco Use Types [...] Care Team (Late st Contact Info) Description 08/04/2025 2:30 PM EDT Office Visit [facility] [address] [place] [address] Estiven Clark MD [address] [place] [address] [place] [address] documented as of this encounter Visit Diagnoses Not on filedocumented in this encounter Care Teams Email Campaign Manager Relationship Specialty Start Date End Date Tristin Harrison MD [address] [place] [address] [phone] [place], [place] PCP - General Internal Medicine 06/28/24 documented as of this encounter
== END 2025-05-04 10:32 | disposition home or self-care (01) ==
LOC: HO.HMCHD 09:59
PROVIDERS: PCP Internal Medicine; Visit Provider Physician Assistant
DX: N18.30 Chronic kidney disease, stage 3 unspecified (principal); F41.9 Anxiety disorder, unspecified; R73.03 Prediabetes; I10 Essential (primary) hypertension; E22.2 Syndrome of inappropriate secretion of antidiuretic hormone; R10.9 Unspecified abdominal pain

== ENCOUNTER → 2025-05-04 09:58 | Outpatient (BNVA) | payer MEDICARE, SELFPAY | PROVIDERS: PCP Internal Medicine; Visit Provider Physician Assistant | DX: I12.9 Hypertensive chronic kidney disease with stage 1 through stage 4 chronic kidney disease, or unspecified chronic kidney disease (principal); K21.9 Gastro-esophageal reflux disease without esophagitis; N18.30 Chronic kidney disease, stage 3 unspecified; F41.9 Anxiety disorder, unspecified; R73.03 Prediabetes; E22.2 Syndrome of inappropriate secretion of antidiuretic hormone; R10.9 Unspecified abdominal pain; D64.9 Anemia, unspecified; Z91.81 History of falling | CPT/HCPCS: 96127; 99202 ==

== ENCOUNTER 2025-05-12 09:52 | Outpatient (REF) | payer MEDICARE, SELFPAY ==
[2025-05-12 10:04] LABS: MANUAL DIFF FLAG NO
[2025-05-12 10:17] LABS: Basophils Absolute Auto 0.1 X10*3/uL (0.0-0.2); Basophils Percent Auto 1.2 % (0-2); Eosinophils Absolute Auto 0.2 X10*3/uL (0.0-0.4); Eosinophils Percent Auto 3.4 % (0-4); Hematocrit 30.8 % (37.0-47.0); Imm Gran Abs Auto 0.02 X10*3/uL (0.00-0.03); Imm Gran Pct Auto 0.3 % (0.0-0.4); Lymphocytes Absolute Auto 2.4 X10*3/uL (1.2-4.9); Lymphocytes Percent Auto 36.9 % (20-40); Mean Corpuscular HGB Conc 32.5 g/dl (31.0-35.0); Mean Corpuscular Volume 86.3 fL (80.0-98.0); Mean Platelet Volume 11.6 fL (9.4-12.3); Monocytes Absolute Auto 0.8 X10*3/uL (0.1-1.2); Monocytes Percent Auto 12.6 % (2-11); Neutrophils Percent Auto 45.6 % (45-73); Platelet Count 258 X10*3/uL (160-400); Red Blood Count 3.57 X10*6/uL (4.20-5.50); Red Cell Distribution Width 13.6 % (11.0-16.0); White Blood Count 6.5 X10*3/uL (4.8-10.8)
[2025-05-12 10:22] LABS: Estimated Average Glucose 131 mg/dL; Hemoglobin A1c % 6.2 % (<6.0)
[2025-05-12 10:46] LABS: Anion Gap 11 (12-20); Blood Urea Nitrogen 17 mg/dL (9-16); Calcium 9.2 mg/dL (8.4-10.2); Carbon Dioxide 24 mmol/L (22-29); Chloride 101 mmol/L (96-108); Estimated Glomerular Filt Rate 51; Glucose Random 100 mg/dL (60-115); Potassium 4.4 mmol/L (3.3-5.1); Sodium 132 mmol/L (135-145)
--- OUTSIDE RECORDS SUMMARY | 2025-05-12 11:02 | XMS_ITS | Encounter Summary ---
Author Organization [facility] [place], Address PO [facility] [address] [place] [address] Phone Care Team Providers Care Auctioneer Automobile Name Role Phone nAa Adam MD Primary Care Provider [phone] Encounter Details Date Type Department Care Team (Late st Contact Info) Description 07/29/2024 Documentation Only [facility] [address] [place] [address] Pamela Santos [address] [place] [phone] Social History Tobacco Use Types Packs/Day Years [...] Visit [facility] [address] [place] [address] Estiven Clark MD [address] [place] [address] [place] [address] documented as of this encounter Visit Diagnoses Not on filedocumented in this encounter Care Teams Auctioneer Automobile Relationship Specialty [place] [address] [place] [address] [id number] PCP - General Internal Medicine 05/04/25 documented as of this encounter
== END 2025-05-12 09:53 | disposition home or self-care (01) ==
LOC: HO.LAB 09:52
PROVIDERS: PCP Physician Assistant; Visit Provider Physician Assistant
DX: R73.03 Prediabetes (principal); I10 Essential (primary) hypertension; D64.9 Anemia, unspecified
CPT/HCPCS: 36415; 80048; 83036; 85025

== ENCOUNTER 2025-05-20 07:29 | Outpatient (REF) | payer MEDICARE, SELFPAY ==
--- NOTE | ~2025-05-20 | CT_ITS ---
CLINICAL HISTORY: R10.9 - Unspecified abdominal pain --- Additional Notes or Special Instructions: palpable bulge just R of midline in periumbilical area. ?hernia CT abdomen and pelvis without contrast Comparison: None Findings: Examination is limited by without contrast. Lung bases are clear. No pleural effusion. Small hiatal hernia. Liver, Pancreas, Spleen and both adrenals show normal size, shape and attenuation on present unenhanced scan. No CBD dilatation. Gallstone in the gallbladder. Both kidneys reveal normal in size, shape, position and attenuation. No kidney stone. No hydronephrosis. The IVC, aorta and portal vein are within normal position and caliber. Atherosclerosis calcification of the aorta. No evidence of retroperitoneal lymphadenopathy or ascites. The visible parts of the bowel loops show no obvious mass lesions or wall thickening. Moderate amount of fecal material within the colon. Appendix appears normal. Urinary bladder reveals normal lumen and verdin. Calcified uterine fibroid. Scoliosis and degenerative changes of the lumbar spine. IMPRESSION: No evidence of ventral hernia. Cholelithiasis. Additional findings as above. This document has been electronically signed by: Luisito Agee MD on 05/20/2025 13:49:45
--- OUTSIDE RECORDS SUMMARY | 2025-05-20 07:31 | XMS_ITS | Encounter Summary ---
Author Organization [facility] [place], Address PO [facility] [address] [place] [address] Phone Care Team Providers Care Information Systems Project Manager Name Role Phone Ana Adam MD Primary Care Provider [phone] Encounter Details Date Type Department Care Team (Late st Contact Info) Description 07/29/2024 Documentation Only [facility] [address] [place] [address] Pamela Santos [address] [place] [phone] Social History Tobacco Use Types Packs/Day Years [...] Visit [facility] [address] [place] [place] [address] Estiven Clark MD [address] [place] [address] [place] [address] documented as of this encounter Visit Diagnoses Not on filedocumented in this encounter Care Teams Information Systems Project Manager Relationship Specialty [place] [address] [place] [address] [id number] PCP - General Internal Medicine 05/04/25 documented as of this encounter
== END 2025-05-20 07:30 | disposition home or self-care (01) ==
LOC: HO.CT 07:29
PROVIDERS: PCP Internal Medicine; Visit Provider Physician Assistant
DX: R10.9 Unspecified abdominal pain (principal); W19.XXXD Unspecified fall, subsequent encounter
CPT/HCPCS: 74176

== ENCOUNTER → 2025-05-20 07:31 | Outpatient (BNV) | payer MEDICARE, SELFPAY | PROVIDERS: PCP Internal Medicine; Visit Provider Nuclear Medicine | DX: K80.20 Calculus of gallbladder without cholecystitis without obstruction (principal) | CPT/HCPCS: 74176 ==

== ENCOUNTER 2025-06-08 16:40 | Outpatient (AMB) | payer MEDICARE, SELFPAY ==
--- NOTE | 2025-06-08 16:41 | A.OFFPC_ITS ---
Vital Signs 06/08/25 16:43 Height 4 ft 8 in Weight 53.524 kg BMI 26.5 BP 140/70 H Respiration 14 Pulse 68 Pulse Source Pulse Oximeter Temp 98.6 F Temp Source Temporal Artery Scan Pulse Oximetry (%) 98 Oxygen Delivery Method Room Air Intake Visit Reasons: 5 Week F/U Diesel Service Apprentice Required: No Accompanied by: Daughter Allergies No Known Allergies Allergy (Mild, Verified 06/08/25 16:42) NOT APPLICABLE Medication List - Last Reconciled 06/08/25 by MARGOT Rosales alprazolam 1.5 mg (6 x 0.25 mg) PO BEDTIME bupropion HCl SR 100 mg PO QAM [id number]-[id number] 325 mg-12.5 mcg -2.75 mg (Citracal-D3 Maximum Plus) 1 tab PO DAILY cholecalciferol (vitamin D3) 50 mcg PO DAILY glucosamine sulfate 1,500 mg PO DAILY lansoprazole 30 mg PO DAILY lisinopril 10 mg PO DAILY multivitamin 1 tab PO DAILY sertraline 25 mg PO DAILY HPI HPI Comments History of Present Illness Details 80-year-old female with history of hyper tension, GERD, CKD stage 3, anxiety, osteoporosis, and hyponatremia presents to the office today for for annual physical exma. She is accompanied by her daughter Dixie, who assists with Portuguese translation, the patient is able to understand and speak some Turkish. She lives independently in her home and is independent with ADLs. She is active gardening and going for walks. Happily retired. Not always following a healthy diet. Hypertension-BP in the office 140/70. She follows with Nephrology who states her systolic pressure should be in the 140s-150s. Continues on lisinopril 10 mg daily. Pre diabetes-hgb a1c increased to 6.2%. Not following healthy diet. Not on medication CKD stage 3-following closely with Nephrology, notes to be requested History of hyponatremia-hospitalization at [facility] requiring ICU due to severe hyponatremia with levels as low as 109 resulting in seizures. 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 Started on sertraline for anxiety but levels remain stable. Follows with nephro Anxiety-Improved with sertraline 25mg. Continues on bupropion and using alprazolam at night which helps with sleep. Trazodone not effective. Concerns: Reprots occ edema in the ble. Occurs with prolonged standing and sitting. Health maintenance: No longer undergoing mammo or colonoscopy Reviewed past family, medical, social, and surgical hx ROS: General: No fevers, malaise, unintentional weight loss HEENT: No blurred vision, diplopia. No sore throat, nasal congestion, rhinorrhea, sinus pain, ear pain. No hearing loss Neck - no adenopathy Cardiovascular: No chest pain, palpitations. +edema Respiratory: No shortness of breath, wheezing, cough Breast: No pain, palpable lumps, nipple inversion GI: No dysphagia, odynophagia, globus sensation. No abdominal pain, nausea, vomiting, diarrhea, constipation, melena, hematochezia : No dysuria, hematuria, increased urinary frequency, decreased urinary output. EMPLOYMENT SPECIALIST/PROGRAM MANAGER: No abn vaginal bleeding or discharge MSK: No myalgia, back pain, arthralgias Neuro: No headaches, weakness, paresthesias Psych: no depression/anxiery. No AH/VH. No SI/HI Skin: No rashes or lesions EXAM: Constitutional - Awake and Alert, No apparent distress Eyes - PERRLA, EOMI. Anicteric Ears - external ears normal, canals clear, TMs intact and pearly boucher with good cone of light Nose- septum midline, nares clear, no sinus tenderness Mouth/throat- mucosa moist, tongue and uvula midline, no erythema/edema or tonsillar adenopathy. Neck-trachea midline, thyroid symmetric without palpable nodules, no adenopathy Cardiovascular - S1S2, RRR, 1+ ble edema Respiratory - Normal lung expansion, Normal respiratory effort, No respiratory distress, CTA bilaterally Gastrointestinal - NT / ND; +BS; No rebound or guarding - No CVA tenderness Extremities - no calf tenderness bilaterally, no swelling Musculoskeletal - Normal inspection, normal ROM Skin - Warm/Dry, no concerning lesions Neurological - Alert & oriented x3, CN II-XII in tact, 5/5 strength BUE and BLE, 2+ patellar reflexes, sensation intact Psychological - Appropriate affect [facility] Medical History (Updated 05/04/25 @ 10:58 by MARGOT Rosales) Anemia Hyponatremia SIADH (syndrome of inappropriate ADH production) Anemia of chronic disease Prediabetes Osteoporosis Paranoia Anxiety CKD (chronic kidney disease), stage III GERD (gastroesophageal reflux disease) HTN (hypertension) Surgical History (Updated 05/04/25 @ 15:56 by She Jones) History of colonoscopy (~10/10/17) Family History Sister HTN (hypertension) Social History Household Members: None Housing: House Alcohol intake: never Patient Tobacco Use Status: Never used Tobacco Current occupational status: retired Sexual orientation: Straight/Heterosexual Gender identity: Female Questionnaire Thrive Questionnaire Date Thrive assessed: 05/04/25 XENIA-7 AMB Questionnaire XENIA-7 Date XENIA - 7 assessed: 05/04/25 Source: Developed by Drs. Carson Lucas, Sonia Live, Peter Escobar and colleagues, with an educational ede from [employer]. Physical exam (Primary Care) Vital Signs: Last Vital Signs Temp 98.6 F 06/08/25 16:43 Pulse 68 06/08/25 16:43 Resp 14 06/08/25 16:43 BP 140/70 H 06/08/25 16:43 Pulse Ox 98 06/08/25 16:43 Oxygen Delivery Method Room Air 06/08/25 16:43 BMI result Body Mass Index 26.5 Tobacco/Smoking Status: Tobacco use Status Patient Tobacco Use Status Never used Tobacco 06/08/25 16:43 Thrive Assessment: Date of Thrive Assessment Date Thrive assessed 05/04/25 06/08/25 16:43 Coding Level of Care Code Est Pt Prev Care >65y(81669) Diagnoses Routine medical exam Z00.00 CKD (chronic kidney disease), stage III N18.30 Anxiety F41.9 Prediabetes R73.03 HTN (hypertension) I10 SIADH (syndrome of inappropriate ADH production) E22.2 Assessment & Plan Assessment & Plan (1) Routine medical exam: Code(s): Z00.00 - Encounter for general adult medical examination without abnormal findings Plan: 80 year old female presenting for annual exam. Plan as below (2) CKD (chronic kidney disease), stage III: Code(s): N18.30 - Chronic kidney disease, stage 3 unspecified Category: Medical Plan: Stable. Continue following with nephrology. BMP ordered (3) Anxiety: Code(s): F41.9 - Anxiety disorder, unspecified Category: Medical Plan: Controlled. Continue sertraline, bupropion, alprazolam (4) Prediabetes: Code(s): R73.03 - Prediabetes Category: Medical Plan: Hgb A1c increased. Diet low in refined sugars and simple carbohydrates advised (5) HTN (hypertension): Code(s): I10 - Essential (primary) hypertension Category: Medical Plan: Controlled per nephrology recommendations to keep SBP 140-150s. Continue lisinopril 10mg daily (6) SIADH (syndrome of inappropriate ADH production): Code(s): E22.2 - Syndrome of inappropriate secretion of antidiuretic hormone Category: Medical Plan: stable. continue with fluid restrictions and follow up with nephro Plan Follow up in 4 months. Compression stockings and leg elevation for BLE edema. Routine screening labs as ordered below Continue with screening mammograms, Pap smears, colonoscopies Continue following for annual skin exams and use sun protection Annual eye exams Wear seat belt in car Recommend regular exercise and healthy diet Medications: Changed From alprazolam 0.25 mg PO DAILY 30 tabs 2RF To alprazolam 1.5 mg (6 x 0.25 mg) PO BEDTIME 45 tabs 0RF Discontinued trazodone Discontinued Reason: Doctor's Order 25 - 50 mg (0.5 - 1 x 50 mg) PO BEDTIME PRN 90 tabs 0RF sleep
[2025-06-08 16:43] VITALS: BP 140/70; PULSE 68; RESP 14; TEMP 37; O2SAT 98; BMI 26.5
== END 2025-06-08 17:24 | disposition home or self-care (01) ==
PROVIDERS: PCP Internal Medicine; Visit Provider Physician Assistant
DX: Z00.00 Encounter for general adult medical examination without abnormal findings (principal); N18.30 Chronic kidney disease, stage 3 unspecified; F41.9 Anxiety disorder, unspecified; R73.03 Prediabetes; I10 Essential (primary) hypertension; E22.2 Syndrome of inappropriate secretion of antidiuretic hormone

== ENCOUNTER → 2025-06-08 16:40 | Outpatient (BNVA) | payer MEDICARE, SELFPAY | PROVIDERS: PCP Internal Medicine; Visit Provider Physician Assistant | DX: Z00.00 Encounter for general adult medical examination without abnormal findings (principal); I12.9 Hypertensive chronic kidney disease with stage 1 through stage 4 chronic kidney disease, or unspecified chronic kidney disease; N18.30 Chronic kidney disease, stage 3 unspecified; F41.9 Anxiety disorder, unspecified; R73.03 Prediabetes; E22.2 Syndrome of inappropriate secretion of antidiuretic hormone; Z79.899 Other long term (current) drug therapy | CPT/HCPCS: 99397 ==

== ENCOUNTER 2025-08-02 09:59 | Outpatient (REF) | payer MEDICARE, SELFPAY ==
--- OUTSIDE RECORDS SUMMARY | 2024-12-03 10:20 | XMS_ITS ---
Author Organization [facility] Address [address] [place] [address] Care Team Providers Care Development Geologist Name Role Phone Christy (RETIRED) Tristin OVALLE Primary Care Provide Carson Scott [phone] REASON FOR VISIT Patient presents today for mucous in stool Encounters Encounter Location Date Provider Diagnosis [facility] [address] [place] [address] 12/03/2024 Carson Stafford Plan Of Treatment No Information Progress Notes * LIZETH COLEB:08/1945 (80 yo F)Acc No.[id number]:12/03/2024 Progress Notes Patient: SAGE MENDOZA Provider: Evans Stafford MD :1945 A ge:79 Y S ex:Female Date:12/03/2024 Address:[address] [place] [address] [facility] Pcp:Tristin Harrison (RETIRED )MD Subjective: * Chief Complaints: * 1 . Patient presents today for mucous in stool. * Medical History: Objective: * Vitals: Assessment: Plan: * Treatment: * * The named appointment provid er may or may not be the originator of this progress note, and it is not deemed complete until electronically signed by the appointment provider. Sign off status: Pending * Provider: Evans Stafford MD Date: 0 12/03/2024 Generated for Printi ng/Faadryang/eTransmitting on: 0 08/02/2025 11:18 AM EDT
--- OUTSIDE RECORDS SUMMARY | 2025-08-02 11:18 | XMS_ITS | Encounter Summary ---
Author Organization [facility] [place], Address [address] [facility] [address] [place] [address] Phone Care Team Providers Care Desk Editor Name Role Phone Ana Adam MD Primary Care Provider [phone] Encounter Details Date Type Department Care Team (Late st Contact Info) Description 11/30/2024 Documentation Only [facility] [address] [place] [address] Pamela Santos [address] [place] [phone] Social History Tobacco Use Types Packs/Day Years [...] [facility] [address] [place] [address] Estiven Clark MD [address] [place] [address] [place] [address] documented as of this encounter Visit Diagnoses Not on filedocumented in this encounter Care Teams Desk Editor Relationship Specialty [place] [address] [place] [address] [id number] PCP - General Internal Medicine 05/04/25 documented as of this encounter
--- OUTSIDE RECORDS SUMMARY | 2025-08-02 11:18 | XMS_ITS | Encounter Summary ---
Author Organization [facility] [place], Address PO [facility] [address] [place] [address] Phone Care Team Providers Care Coordinate Measuring Machine Operator Name Role Phone Ana Adam MD Primary Care Provider [phone] Encounter Details Date Type Department Care Team (Late st Contact Info) Description 11/30/2024 Documentation Only [facility] [address] [place] [address] Pamela Santos [address] [place] [phone] Social History Tobacco Use Types Packs/Day Years [...] Visit [facility] [address] [place] [address] Estiven Clark MD [address] [place] [address] [place] [address] documented as of this encounter Visit Diagnoses Not on filedocumented in this encounter Care Teams Coordinate Measuring Machine Operator Relationship Specialty [place] [address] [place] [address] [phone] PCP - General Internal Medicine 05/04/25 documented as of this encounter
--- OUTSIDE RECORDS SUMMARY | 2025-08-02 11:18 | XMS_ITS | Encounter Summary ---
Author Organization [facility] [place], Address PO [facility] [address] [place] [address] Phone Care Team Providers Care Cherry Pitter Name Role Phone Ana Adam MD Primary Care Provider [phone] Encounter Details Date Type Department Care Team (Late st Contact Info) Description 11/30/2024 Documentation Only [facility] [address] [place] [address] Pamela Santos [address] [place] [phone] Social History Tobacco Use Types Packs/Day Years [...] Visit [facility] [address] [place] [address] Estiven Clark MD [address] [place] [address] [place] [address] documented as of this encounter Visit Diagnoses Not on filedocumented in this encounter Care Teams Cherry Pitter Relationship Specialty [place] [address] [place] [address] [id number] PCP - General Internal Medicine 05/04/25 documented as of this encounter
--- OUTSIDE RECORDS SUMMARY | 2025-08-02 11:18 | XMS_ITS | Encounter Summary ---
Author Organization [facility] [place], Address PO [facility] [address] [place] [address] Phone Care Team Providers Care Director Group Sales Name Role Phone Ana Adam MD Primary Care Provider [phone] Encounter Details Date Type Department Care Team (Late st Contact Info) Description 07/29/2024 Documentation Only [facility] [address] [place] [address] Pamela Santos [address] [place] [phone] Social History Tobacco Use Types Packs/Day Years [...] [facility] [address] [place] [address] Estiven Clark MD [address] [place] [address] [place] [address] documented as of this encounter Visit Diagnoses Not on filedocumented in this encounter Care Teams Director Group Sales Relationship Specialty [place] [address] [place] [address] [id number] PCP - General Internal Medicine 05/04/25 documented as of this encounter
--- OUTSIDE RECORDS SUMMARY | 2025-08-02 11:18 | XMS_ITS | Encounter Summary ---
Author Organization [facility] [place], Address PO [facility] [address] [place] [address] Phone Care Team Providers Care Grocery Bagger Name Role Phone Ana Adam MD Primary Care Provider [phone] Encounter Details Date Type Department Care Team (Late st Contact Info) Description 11/30/2024 Documentation Only [facility] [address] [place] [address] Pamela Santos [address] [place] [phone] Social History Tobacco Use Types Packs/Day Years [...] Visit [facility] [address] [place] [address] Estiven Clark MD [address] [place] [address] [place] [address] documented as of this encounter Visit Diagnoses Not on filedocumented in this encounter Care Teams Grocery Bagger Relationship Specialty [place] [address] [place] [address] [phone] PCP - General Internal Medicine 05/04/25 documented as of this encounter
--- OUTSIDE RECORDS SUMMARY | 2025-08-02 11:18 | XMS_ITS | Patient Health Record ---
Author Organization [facility] Address [address] [place] [address] Care Team Providers Care Stitcher Special Machine Name Role Phone Christy (RETIRED) Tristin OVALLE Primary Care Provide Carson Scott Unavailable [phone] Reason For Referral No Information Medications Medication SIG (Take, Route, Fr equency, Duration) [...] 1 capsule Orally Once a day Active Problems Problem Type SNOMED Code ICD Code Onset Dates Problem Status W/U Status Risk Notes Problem [id number] Encounter for screening for malignant neoplasm of colon (Z12.11) Active confirmed Problem 556518644 History of adenomatous polyp of colon (Z86.010) Active confirmed Problem [id number] Gastroesophageal reflux disease, esophagitis presence not specified (K21.9) Active confirmed Encounters Encounter Location Date Provider Diagnosis [facility] [address] [place] [address] 12/02/2024 Carson Stafford Plan Of Treatment Future Test Test Name Order Date COLONOSCOPY 09/01/2012 UPPER GI ENDOSCOPY 09/16/2017 COLONOSCOPY 09/16/2017 Insurance Providers Payer Name Payer Address Payer Phone Subscriber Number Group Number Insured Name Patient Relationship to Insured Coverage Start Date Coverage End Date [facility] [address] [place] [address] [phone] [id number] [employer] Self - patient is the insured MEDICARE OF [place] [address] [place] [address] [id number] [employer] Self - patient is the insured Medical (General) History Medical History History ICD Code GERD--neg. EGD in 2006 excep t for small HH and reflux--no esophagitis nor Pineda's esophagus, gastric biopsies were negative for H. pylori Colon polyps-tubular adenoma s removed in 2001 and 10/2012; negative colonoscopy in 2006; diverticulosis and internal hemorrhoids noted on the colonoscopies Nasal polyps Gallstones HTN Denies PR,DM,CVA,Lung disease,renal dise ase Surgical History Surgery Date(Month/Year) Nasal polyps
--- OUTSIDE RECORDS SUMMARY | 2025-08-02 11:18 | XMS_ITS | Encounter Summary ---
Author Organization [facility] [place], Address PO [facility] [address] [place] [address] Phone Care Team Providers Care Applied Psychology Chair Name Role Phone Ana Adam MD Primary Care Provider Encounter Details Date Type Department Care Team (Late st Contact Info) Description 12/13/2024 Documentation Only [facility] [address] [place] [address] Pamela Santos [address] [place] [phone] Social History Tobacco Use Types Packs/Day Years [...] Visit [facility] [address] [place] [address] Estiven Clark MD [address] [place] [address] [place] [address] documented as of this encounter Visit Diagnoses Not on filedocumented in this encounter Care Teams Applied Psychology Chair Relationship Specialty [place] [address] [place] [address] [phone] PCP - General Internal Medicine 05/04/25 documented as of this encounter
--- OUTSIDE RECORDS SUMMARY | 2025-08-02 11:18 | XMS_ITS | Encounter Summary ---
Author Organization [facility] [place], Address [address] [place] [address] Phone Care Team Providers Care Oil Well Engineer Name Role Phone Ana Adam MD Primary Care Provider [phone] Encounter Details Date Type Department Care Team (Late st Contact Info) Description 08/21/2024 Documentation Only [facility] [address] [place] [address] Estiven Clark MD [address] [facility] [place] [phone] Social History Tobacco Use Types Packs/Day Years [...] Visit [facility] [address] [place] [address] Estiven Clark MD [address] [facility] [place] [address] documented as of this encounter Procedures Procedure Name Priority Date/Time Associated Diagnosis Comments RENAL FUNCTION PANEL Routine 08/21/2024 11:28 AM EDT Hyponatremia documented in this encounter Results * (ABNORMAL) Renal Function Panel (08/21/2024 11:28 AM EDT) Glucose 115(H) 70 - 99 mg/dL [facility] BUN 21 8 - 27 mg/dL [facility] Creatinine 0.74 0.57 - 1.00 mg/dL [facility] eGFR CKD-EPI CR 2020 81 >59 mL/min/1.7 3 [facility] BUN/Creatinine Ratio 28 12 - 28 [facility] Sodium 137 134 - 144 mmol/L [facility] Potassium 4.1 3.5 - 5.2 mmol/L [facility] Chloride 102 96 - 106 mmol/L [facility] Bicarbonate (CO2) 23 20 - 29 mmol/L [facility] Calcium 8.7 8.7 - 10.3 mg/dL [facility] Phosphorus 3.8 3.0 - 4.3 mg/dL [facility] Albumin 3.6(L) 3.7 - 4.7 g/dL [facility] Blood specimen (specimen) Venous blood / Unknown 08/21/2024 11:28 AM EDT 08/21/2024 us Estiven Clark MD LAB BLOOD ORDERABLES Final Re sult [facility] [address] [place] [address] documented in this encounter Visit Diagnoses Diagnosis Hyponatremia- Primary documented in this encounter Care Teams Oil Well Engineer Relationship Specialty Start Date End Date Ana Adam MD [address] [place] [phone] PCP - General Internal Medicine 05/04/25 documented as of this encounter
--- OUTSIDE RECORDS SUMMARY | 2025-08-02 11:18 | XMS_ITS | Encounter Summary ---
Author Organization [facility] [place], Address PO [facility] [address] [place] [address] Phone Care Team Providers Care Home Therapy Clinician Name Role Phone Ana Adam MD Primary Care Provider [phone] Encounter Details Date Type Department Care Team (Late st Contact Info) Description 07/29/2024 Documentation Only [facility] [address] [place] [address] Pamela Santos [address] [place] [phone] Social History Tobacco Use Types Packs/Day Years [...] [facility] [address] [place] [address] Estiven Clark MD [address] [place] [address] [place] [address] documented as of this encounter Visit Diagnoses Not on filedocumented in this encounter Care Teams Home Therapy Clinician Relationship Specialty [place] [address] [place] [address] [phone] PCP - General Internal Medicine 05/04/25 documented as of this encounter
--- OUTSIDE RECORDS SUMMARY | 2025-08-02 11:18 | XMS_ITS | Encounter Summary ---
Author Organization [facility] [place], Address PO [facility] [address] [place] [address] Phone Care Team Providers Care Motion Picture Camera Operator Name Role Phone Ana Adam MD Primary Care Provider [phone] Encounter Details Date Type Department Care Team (Late st Contact Info) Description 11/30/2024 Documentation Only [facility] [address] [place] [address] Pamela Santos [address] [place] [phone] Social History Tobacco Use Types Packs/Day Years [...] Visit [facility] [address] [place] [address] Estiven Clark MD [address] [place] [address] [place] [address] documented as of this encounter Visit Diagnoses Not on filedocumented in this encounter Care Teams Motion Picture Camera Operator Relationship Specialty [place] [address] [place] [address] [phone] PCP - General Internal Medicine 05/04/25 documented as of this encounter
--- OUTSIDE RECORDS SUMMARY | 2025-08-02 11:18 | XMS_ITS | Encounter Summary ---
Author Organization [facility] [place], Address PO [facility] [address] [place] [address] Phone Care Team Providers Care Audit Spec Name Role Phone Ana Adam MD Primary Care Provider [phone] Encounter Details Date Type Department Care Team (Late st Contact Info) Description 11/30/2024 Documentation Only [facility] [address] [place] [address] Pamela Santos [address] [place] [phone] Social History Tobacco Use Types Packs/Day Years [...] [facility] [address] [place] [address] Estiven Clark MD [address] [place] [address] [place] [address] documented as of this encounter Visit Diagnoses Not on filedocumented in this encounter Care Teams Audit Spec Relationship Specialty [place] [address] [place] [address] [phone] PCP - General Internal Medicine 05/04/25 documented as of this encounter
--- OUTSIDE RECORDS SUMMARY | 2025-08-02 11:18 | XMS_ITS | Encounter Summary ---
Author Organization [facility] [place], Address PO [facility] [address] [place] [address] Phone Care Team Providers Care Director Digital Catalogue Name Role Phone Ana Adam MD Primary Care Provider [phone] Encounter Details Date Type Department Care Team (Late st Contact Info) Description 11/30/2024 Documentation Only [facility] [address] [place] [address] Pamela Santos [address] [place] [phone] Social History Tobacco Use Types Packs/Day Years [...] [facility] [address] [place] [address] Estiven Clark MD [address] [place] [address] [place] [address] documented as of this encounter Visit Diagnoses Not on filedocumented in this encounter Care Teams Director Digital Catalogue Relationship Specialty [place] [address] [place] [address] [phone] PCP - General Internal Medicine 05/04/25 documented as of this encounter
--- OUTSIDE RECORDS SUMMARY | 2025-08-02 11:18 | XMS_ITS | Encounter Summary ---
Author Organization [facility] [place], Address PO [facility] [address] [place] [address] Phone Care Team Providers Care Supervisor Lump Room Name Role Phone Ana Adam MD Primary Care Provider [phone] Encounter Details Date Type Department Care Team (Late st Contact Info) Description 12/14/2024 Documentation Only [facility] [address] [place] [address] Pamela Santos [address] [place] [phone] Social History Tobacco Use Types Packs/Day Years [...] [facility] [address] [place] [address] Estiven Clark MD [address] [place] [address] [place] [address] documented as of this encounter Visit Diagnoses Not on filedocumented in this encounter Care Teams Supervisor Lump Room Relationship Specialty [place] [address] [place] [address] [phone] PCP - General Internal Medicine 05/04/25 documented as of this encounter
--- OUTSIDE RECORDS SUMMARY | 2025-08-02 11:18 | XMS_ITS | Encounter Summary ---
Author Organization [facility] [place], Address PO [facility] [address] [place] [address] Phone Care Team Providers Care Tube Maker Name Role Phone Ana Adam MD Primary Care Provider [phone] Encounter Details Date Type Department Care Team (Late st Contact Info) Description 11/30/2024 Documentation Only [facility] [address] [place] [address] Pamela Santos [address] [place] [phone] Social History Tobacco Use Types Packs/Day Years [...] [facility] [address] [place] [address] Estiven Clark MD [address] [place] [address] [place] [address] documented as of this encounter Visit Diagnoses Not on filedocumented in this encounter Care Teams Tube Maker Relationship Specialty [place] [address] [place] [address] [phone] PCP - General Internal Medicine 05/04/25 documented as of this encounter
--- OUTSIDE RECORDS SUMMARY | 2025-08-02 11:18 | XMS_ITS | Encounter Summary ---
Author Organization [facility] [place], Address PO [facility] [address] [place] [address] Phone Care Team Providers Care Councilperson Name Role Phone Ana Adam MD Primary Care Provider [phone] Encounter Details Date Type Department Care Team (Late st Contact Info) Description 12/13/2024 Documentation Only [facility] [address] [place] [address] Pamela Santos [address] [place] [phone] Social History Tobacco Use Types Packs/Day Years [...] Visit [facility] [address] [place] [address] Estiven Clark MD [address] [place] [address] [place] [address] documented as of this encounter Visit Diagnoses Not on filedocumented in this encounter Care Teams Councilperson Relationship Specialty [place] [address] [place] [address] [phone] PCP - General Internal Medicine 05/04/25 documented as of this encounter
--- OUTSIDE RECORDS SUMMARY | 2025-08-02 11:18 | XMS_ITS | Encounter Summary ---
Author Organization [facility] [place], Address PO [facility] [address] [place] [address] Phone Care Team Providers Care Heating Element Builder Name Role Phone Ana Adam MD Primary Care Provider [phone] Encounter Details Date Type Department Care Team (Late st Contact Info) Description 11/30/2024 Documentation Only [facility] [address] [place] [address] Pamela Santos [address] [place] [phone] Social History Tobacco Use Types Packs/Day Years [...] Visit [facility] [address] [place] [address] Estiven Clark MD [address] [place] [address] [place] [address] documented as of this encounter Visit Diagnoses Not on filedocumented in this encounter Care Teams Heating Element Builder Relationship Specialty [place] [address] [place] [address] [phone] PCP - General Internal Medicine 05/04/25 documented as of this encounter
--- OUTSIDE RECORDS SUMMARY | 2025-08-02 11:19 | XMS_ITS | Encounter Summary ---
Author Organization [facility] [place], Address PO [facility] [address] [place] [address] Phone Care Team Providers Care Shake Loader Name Role Phone Ana Adam MD Primary Care Provider [phone] Encounter Details Date Type Department Care Team (Late st Contact Info) Description 07/13/2024 Documentation Only [facility] [address] [place] [address] Pamela Santos [address] [place] [phone] Social History Tobacco Use Types Packs/Day Years [...] [facility] [address] [place] [address] Estiven Clark MD [address] [place] [address] [place] [address] documented as of this encounter Visit Diagnoses Not on filedocumented in this encounter Care Teams Shake Loader Relationship Specialty [place] [address] [place] [address] [phone] PCP - General Internal Medicine 05/04/25 documented as of this encounter
--- OUTSIDE RECORDS SUMMARY | 2025-08-02 11:19 | XMS_ITS | Encounter Summary ---
Author Organization [facility] [place], Address PO [facility] [address] [place] [address] Phone Care Team Providers Care Rinkman Name Role Phone Ana Adam MD Primary Care Provider [phone] Encounter Details Date Type Department Care Team (Late st Contact Info) Description 07/27/2024 Documentation Only [facility] [address] [place] [address] Pamela Santos [address] [place] [phone] Social History Tobacco Use Types Packs/Day Years [...] Visit [facility] [address] [place] [address] Estiven Clark MD [address] [place] [address] [place] [address] documented as of this encounter Visit Diagnoses Not on filedocumented in this encounter Care Teams Rinkman Relationship Specialty [place] [address] [place] [address] [phone] PCP - General Internal Medicine 05/04/25 documented as of this encounter
--- OUTSIDE RECORDS SUMMARY | 2025-08-02 11:19 | XMS_ITS | Encounter Summary ---
Author Organization [facility] [place], Address PO [facility] [address] [place] [address] Phone Care Team Providers Care Production Support Analyst Name Role Phone Ana Adam MD Primary Care Provider [phone] Encounter Details Date Type Department Care Team (Late st Contact Info) Description 07/29/2025 Documentation Only [facility] [address] [place] [address] Pamela Santos [address] [place] [phone] Social History Tobacco Use Types Packs/Day Years [...] Visit [facility] [address] [place] [address] Estiven Clark MD [address] [place] [address] [place] [address] documented as of this encounter Visit Diagnoses Not on filedocumented in this encounter Care Teams Production Support Analyst Relationship Specialty [place] [address] [place] [address] [phone] PCP - General Internal Medicine 05/04/25 documented as of this encounter
--- OUTSIDE RECORDS SUMMARY | 2025-08-02 11:19 | XMS_ITS | Clinical Summary ---
Author Organization [facility] Address [address] [place] [address] Phone Care Team Providers Care Information Technology Security Manager Name Role Phone Tristin Harrison MD Primary Care Provider Allergies No known active allergies Medications lisinopril (PRINIVIL,ZESTR IL) 10 MG tablet Take 10 mg by mouth daily. Active ALPRAZolam (XANAX) 0.25 MG tablet Take 0.25 mg by mouth nightly at bedtime as needed for sleep. Active calcium carbonate-vitam in D3 1,250 mg (500 mg elemental)-400 units Tab Take 1 tablet by mouth daily. Active glucosamine 500 mg Cap Take 500 mg by mouth 3 (three) times a day. Active triamcinolone acetonide 0.1 % ointment Apply topically 2 (two) times a day. 30 g 9 Active Active Problems Problem Noted Date Diagnosed Date Lichen sclerosus et atrophicus of the vulva 01/2019 Women's annual routine gynecological examination 05/03/2019 Family History Medical History Relation Comments Asthma Brother Liver cancer Maternal Aunt Heart disease Sister Hypertension Sister Relation Status Comments Brother Father Maternal Aunt Mother Sister Alive Social History Tobacco Use Types Packs/Day Years Used Date Smoking Tobacco: Never Smokeless Tobacco: Never Alcohol Use Standard Drinks/Week Comments Not Currently 0 (1 standard drink = 0.6 oz pur e alcohol) Education Answer Date Recorded Are you interested in more education? Not on paul e 03/28/2023 Are you concerned about learning? Not on file 03/28/2023 No 03/28/2023 No 03/28/2023 Digital Access Answer Date Recorded No 04/26/2023 No 04/26/2023 No 04/26/2023 Reliable internet access at home? Not on file 04/26/2023 Device with a working camera? Not on file Comments No Sex and Gender Information Value Date Recorded Sex Assigned at Not on file Legal Sex Female 3:48 PM EDT Gender Identity Not on file Sexual Orientation Not on file Last Filed Vital Signs Vital Sign Reading Time Taken Comments Blood Pressure 150/82 05/03/2019 11:36 AM EDT Pulse - - Temperature - - Respiratory Rate - - Oxygen Saturation - - Inhaled Oxygen Concentration - - Weight 56.9 kg (125 lb 6.4 oz) 05/03/2019 11:36 AM EDT Height 142.2 cm (4' 8 ) 05/03/2019 11:36 AM EDT Body Mass Index 28.11 05/03/2019 11:36 AM EDT Plan of Treatment Health Maintenance Due Date Last Done Comments Adult Td,Tdap Booster 1945 CREATININE LEVEL 1945 POTASSIUM LEVEL 1943 DEPRESSION SCREENING 1955 PNEUMOCOCCAL VACCINES (50+ years) (1 of 1 - PCV) 1993 ZOSTER VACCINES (1 of 2) 1993 OSTEOPOROSIS SCREENING INITIAL (ONE-TIME) 2008 RSV VACCINE (1 - 1-dose 75+ series) 2018 COVID-19 VACCINE (2 - season) 2024 02/26/2021 INFLUENZA VACCINE (#1) 2025 0, 09/21/2018, 09/08/2017, Additional history exists HEPATITIS A VACCINES Aged Out No long er eligible based on patient's age to complete this topic HIB VACCINES Aged Out No longer eligi ble based on patient's age to complete this topic MENINGOCOCCAL VACCINES (ACWY) Aged Out No longer eligible based on patient's age to complete this topic MENINGOCOCCAL VACCINES (B) Aged Out N o longer eligible based on patient's age to complete this topic Medical Devices Not on file Insurance [employer] Care Teams Information Technology Security Manager Relationship Specialty Start Date End Date Tristin Harrison MD NPI: [id number] [place] [address] [place] [address] PCP - General Internal Medicine 04/20/19 Additional Source Comments The information contained in this document represents components of the legal health record. It is not the complete legal health record.[facility]
--- OUTSIDE RECORDS SUMMARY | 2025-08-02 11:19 | XMS_ITS | Clinical Summary ---
Author Organization [facility] Address [address] [place] [address] Phone Care Team Providers Care Process Mechanic Name Role Phone Ana Adam MD Primary Care Provider [phone] Allergies No known active allergies Medications ALPRAZolam [...] Encounters Date Type Department Care Team Description 07/29/2025 Documentation Only [facility], [address] [place] [address] Pamela Santos from Last 3 Months Social History Tobacco Use Types Packs/Day Years Used Date Smoking Tobacco: Never Assessed Comments Unknown Sex and Gender Information Value Date Recorded Sex Assigned at Not on file Legal Sex Female 6:52 PM EDT Gender Identity Not on file Sexual Orientation Not on file Last Filed Vital Signs Vital Sign Reading Time Taken Comments Blood Pressure 135/67 03/03/2025 2:21 PM EDT Pulse 83 03/03/2025 2:21 PM EDT Temperature - - Respiratory Rate - - Oxygen Saturation - - Inhaled Oxygen Concentration - - Weight - - Height - - Body Mass Index - - Plan of Treatment Upcoming Encounters Date Type Department Care Team (Late st Contact Info) Description 08/04/2025 2:30 PM EDT Office Visit [facility], [address] [place] [phone] Estiven Clark MD [address] [place] [address] [place] [phone] Health Maintenance Due Date Last Done Comments Pneumococcal Vaccine: 50+ Ye ars (1 of 2 - PCV) 1962 Influenza Vaccine (#1) 2025 Hepatitis B Vaccine Aged Out No longe r eligible based on patient's age to complete this topic Insurance Care Teams Process Mechanic Relationship Specialty Start Date End Date Ana Adam MD [address] [place] [id number] PCP - General Internal Medicine 05/04/25
--- OUTSIDE RECORDS SUMMARY | 2025-08-02 11:19 | XMS_ITS | Encounter Summary ---
Author Organization [facility], Address [address] [facility] [address] [place] [address] Phone Care Team Providers Care Client Success Specialist Name Role Phone Ana dAam MD Primary Care Provider [phone] Encounter Details Date Type Department Care Team (Late st Contact Info) Description 07/13/2024 Documentation Only [facility] [address] [place] [address] Pamela Santos [address] [place] [phone] Social History Tobacco Use Types Packs/Day Years [...] [facility] [address] [place] [address] Estiven Clark MD [address] [place] [address] [place] [address] documented as of this encounter Visit Diagnoses Not on filedocumented in this encounter Care Teams Client Success Specialist Relationship Specialty [place] [address] [place] [address] [phone] PCP - General Internal Medicine 05/04/25 documented as of this encounter
== END 2025-08-02 10:00 | disposition home or self-care (01) ==
LOC: HO.MAMMO 09:59
PROVIDERS: PCP Physician Assistant; Visit Provider Physician Assistant
DX: Z12.31 Encounter for screening mammogram for malignant neoplasm of breast (principal)
CPT/HCPCS: 77063; 77067

== ENCOUNTER → 2025-08-02 10:30 | Outpatient (BNV) | payer MEDICARE, SELFPAY | PROVIDERS: PCP Physician Assistant; Visit Provider Internal Medicine | DX: Z12.31 Encounter for screening mammogram for malignant neoplasm of breast (principal) | CPT/HCPCS: 77063; 77067 ==